=== PATIENT | female | born 1945 | race Caucasian/White ===

== ENCOUNTER → 2018-11-24 | Outpatient (CLI) | payer BC, MEDICARE ==
--- NOTE | 2018-11-24 22:37 | ECHOS ---
STRESS ECHOCARDIOGRAM DATE OF STUDY: 11/24/2018 INDICATIONS: Ventricular premature depolar. MEDICATIONS: BASELINE HEART RATE: 84 BASELINE BLOOD PRESSURE: 118/60 MAXIMUM HEART RATE: 137 MAXIMUM BLOOD PRESSURE: 150/81 85% MPHR: 127 100% MPHR: 149 METS: 7.0 MAXIMUM STAGE REACHED: 2 TOTAL EXERCISE TIME: 5:10 CLINICAL INFORMATION: Patient was exercised for a total period of 5 minutes. Peak heart rate of 137 was achieved. Maximum blood pressure of 150/81 mmHg was noted. Resting EKG shows normal sinus rhythm with normal MS interval and QRS duration and normal ST-T waves. No ST- segment depression suggestive of ischemia is noted. Occasional PVCs are noted. The baseline echocardiographic images reveal normal left ventricular chamber size with normal left ventricular systolic function. In the immediate post-exercise period, normal increase in the wall thickness and contractility is noted. FINAL IMPRESSION: This stress echocardiographic study is negative for stress-induced ischemia. EKG portion of the stress test is not suggestive of ischemia. Occasional PVCs are noted. MMODL / IJN: [id number] /
== END | disposition home or self-care (01) ==
LOC: RADNMMAIN 09:48
PROVIDERS: ATTEND Internal Medicine
DX: I49.3 Ventricular premature depolarization (principal)
CPT/HCPCS: 93351; Q9950

== ENCOUNTER → 2019-06-21 | Outpatient (CLI) | payer BC, MEDICARE ==
[2019-06-21 08:53] LABS: Basophils # (A) 0.1 k/uL (0-0.2); Basophils % (A) 1 %; Eosinophils # (A) 0.5 k/uL (0-0.7); Eosinophils % (A) 6 %; HCT 39.2 % (34.0-46.0); HGB 12.6 gm/dL (11.4-16.0); Lymphocytes # (A) 1.9 k/uL (1.0-4.8); Lymphocytes % (A) 23 %; MCH 28.8 pg (25.0-35.0); MCHC 32.3 g/dL (31.0-37.0); MCV 89.3 fL (80.0-100.0); Mean Platelet Volume 6.3; Monocytes # (A) 0.4 k/uL (0-1.0); Monocytes % (A) 6 %; Neutrophils # (A) 4.9 k/uL (1.3-7.7); Neutrophils % (A) 61 %; Platelet Count 318 k/uL (150-450); RBC 4.39 m/uL (3.80-5.40); RDW 14.3 % (11.5-15.5); WBC 8.1 k/uL (3.8-10.6)
[2019-06-21 09:03] LABS: African American GFR (CKD) >90 (>60 ml/min/1.73 sqM); Anion Gap 9 mmol/L; Blood Urea Nitrogen 19 mg/dL (7-17); Carbon Dioxide 29 mmol/L (22-30); Chloride 101 mmol/L (98-107); Glucose 123 mg/dL (74-99); Potassium 4.5 mmol/L (3.5-5.1); Sodium 139 mmol/L (137-145)
== END | disposition home or self-care (01) ==
LOC: LABWHC1 08:00
PROVIDERS: ATTEND Obstetrics & Gynecology
DX: Z01.812 Encounter for preprocedural laboratory examination (principal); E11.9 Type 2 diabetes mellitus without complications; N81.6 Rectocele; I10 Essential (primary) hypertension
CPT/HCPCS: 36415; 80051; 82565; 82947; 84520; 85025; 87086

== ENCOUNTER 2019-06-29 07:02 | Day surgery (SDC) | payer BC, MEDICARE ==
[2019-06-24 13:25] VITALS: BMI 29.7
[2019-06-29] MEDS ORDERED: ONDANSETRON 4 MG/2 ML VIAL IVP ONE (07:11)
[2019-06-29] MEDS ORDERED: HYDROmorphone 0.5 MG/0.5 ML SYRINGE IVP PRN (07:11)
[2019-06-29] MEDS ORDERED: MIDAZOLAM 2 MG/2 ML VIAL IV PRN (07:11)
[2019-06-29] MEDS ORDERED: DEXAMETHASONE SOD PHOSPHATE 10 MG/ML 1 ML VIAL IV ONE (07:11)
[2019-06-29] MEDS ORDERED: LIDOCAINE 1% 20 ML VIAL (10MG/ML) FOR IV START INTRADERMA ONE (07:50)
[2019-06-29 07:54] LABS: Glucose,Whole Blood 135 mg/dL (75-99)
[2019-06-29] MEDS: LACTATED RINGERS 1,000 ML IV SCH (08:00)
[2019-06-29] MEDS ORDERED: MIDAZOLAM 2 MG/2 ML VIAL ONE (09:06)
[2019-06-29] MEDS ORDERED: LIDOCAINE 1% INJ 10MG/ML (20 ML MDV) ONE (09:06)
[2019-06-29] MEDS ORDERED: ALBUTEROL INHALER 60 PUFF/8 GM INHALER INHALATION ONE (09:06)
[2019-06-29] MEDS ORDERED: PHENYLEPHRINE-0.9% NACL SYG 1 MG/10 ML SYRINGE ONE (09:06)
[2019-06-29] MEDS ORDERED: GLYCOPYRROLATE 0.2 MG/ML 2 ML VIAL ONE (09:06)
[2019-06-29] MEDS ORDERED: fentaNYL (PF) 50 MCG/ML 2 ML AMP ONE (09:06)
[2019-06-29] MEDS ORDERED: PROPOFOL 10 MG/ML 20 ML VIAL IV ONE (09:06)
[2019-06-29] MEDS ORDERED: NEOSTIGMINE 1 MG/ML 10 ML VIAL ONE (09:06)
[2019-06-29] MEDS ORDERED: ROCURONIUM BROMIDE 10 MG/ML 10 ML VIAL IV ONE (09:06)
[2019-06-29] MEDS ORDERED: KETOROLAC 30 MG/ML 1 ML VIAL ONE (09:06)
[2019-06-29] MEDS ORDERED: VASOPRESSIN 20 UNIT/ML 1 ML VIAL SQ ONE (09:31)
[2019-06-29] MEDS ORDERED: BACITRACIN 500 UNIT/GM OINT 28.4 GM TUBE TOPICAL ONE (09:32)
[2019-06-29] MEDS ORDERED: diphenhydrAMINE 50 MG/ML 1 ML VIAL IVP PRN (10:00)
[2019-06-29] MEDS ORDERED: IBUPROFEN 600 MG TAB PO PRN (10:00)
[2019-06-29] MEDS ORDERED: ONDANSETRON 4 MG/2 ML VIAL IVP PRN (10:00)
[2019-06-29] MEDS ORDERED: SIMETHICONE 80 MG CHEWABLE PO PRN (10:00)
[2019-06-29] MEDS ORDERED: METOCLOPRAMIDE 5 MG/ML 2 ML VIAL IVP PRN (10:00)
--- NOTE | 2019-06-29 10:00 | P.OP ---
Date of Procedure: 06/29/19 Preoperative Diagnosis: Symptomatic grade 3 rectocele Postoperative Diagnosis: Same, no obvious cystocele Procedure(s) Performed: Posterior repair Anesthesia: BAHMAN Surgeon: Nani Zepeda Inspector Heating And Refrigeration #1: Moni Steele Estimated Blood Loss (ml): 10 IV fluids (ml): 700 Urine output (ml): 180 Pathology: none sent Condition: stable Disposition: PACU Description of Procedure: Patient is brought to the operating suite. A general anesthetic is administered. The appropriate timeout is performed to assure proper patient and procedural identification. Antibiotics are given. The perineal body and vagina are prepped and draped in usual sterile fashion. The grade 3-4 rectocele is inspected, no obvious cystocele is noted. Bladder is drained for approximately 180 mL of clear yellow urine. A triangular portion of tissue is removed from the perineal body. The posterior vaginal mucosa is injected in the midline with dilute Pitressin solution. Metzenbaum scissors are used to undermine the mucosa and incise it to the top of the defect. The mucosa is held in a fanlike fashion with Allis clamps. Finger is used to roll the underlying fascial plane from the overlying mucosa. 2-0 Vicryl sutures used in an interrupted fashion to bring the fascial edges together thereby completely reducing the rectocele. Redundant mucosa is trimmed with Metzenbaum scissors. 2-0 Vicryl sutures then used in a running locking manner to close the posterior mucosa with an episiotomy-like closure to complete. Vagina is clean and dry. It is packed with half inch iodophor gauze with basic tracing. Rodriguez catheter is placed in the urine is clear. All sponge needle and instrument counts are correct at the end of this procedure. Patient is brought back to recovery room in very good condition with stable vital signs including a pulse of 62, blood pressure 92/52. Blood sugar will be checked in the recovery room and insulin administered if needed.
[2019-06-29 10:21] LABS: Glucose,Whole Blood 135 mg/dL (75-99)
[2019-06-29] MEDS ORDERED: METOCLOPRAMIDE 5 MG/ML 2 ML VIAL IVP ONE (10:58)
[2019-06-29] MEDS: KETOROLAC 30 MG/ML 1 ML VIAL IVP PRN ×2 (15:30→20:58)
[2019-06-29] MEDS: metFORMIN 500 MG TAB PO SCH (17:06)
[2019-06-29] MEDS ORDERED: VICTOZA 1.2 MG SQ SCH (18:00)
[2019-06-29] MEDS: SENNOSIDES-DOCUSATE SODIUM 1 EACH TAB PO SCH (20:58)
[2019-06-29] MEDS ORDERED: MAGNESIUM OXIDE 400 MG TAB PO SCH (21:00)
[2019-06-29 21:06] LABS: Glucose,Whole Blood 116 mg/dL (75-99)
[2019-06-30 07:42] LABS: Glucose,Whole Blood 109 mg/dL (75-99)
--- NOTE | 2019-06-30 07:48 | P.DS ---
Providers Date of admission: 06/29/19 Expected date of discharge: 06/30/19 Attending physician: Nani Zepeda [facility] Course: This is a 74-year-old white female who presented with an increasingly symptomat ic grade 3-4 rectocele. After consultation she elected to have surgical repair. Preoperative clearance was given per the medical team. Please see dictated history and physical for details. Patient was admitted yesterday and under my care underwent a rectocele repair. Vaginal packing was placed along with Rodriguez catheter. She did very well intraoperatively, please see dictated operative note for details. Blood sugars preoperatively and postoperatively were checked and all less than 200. This morning the patient is doing extremely well. Vaginal packing and Rodriguez catheter has been removed. She is passing flatus, voiding, ambulating, passing urine. Pain is very well controlled. There is no vaginal bleeding. Vital signs have remained stable and the patient has been afebrile. She is judged to be this morning in excellent condition for discharge home. She will follow-up with me in the office in 2 weeks. I have reminded her no intercourse, tampons or douching. She will use [id number] products as needed for pain, Advil or Aleve, and continue her regularly prescribed medications per medical team. No driving, no heavy lifting, no vacuuming. She will follow-up with me in the office in 2 weeks as instructed. Patient Condition at Discharge: Good Plan - Discharge Summary New Discharge Prescriptions: No Action Propylene Glycol [Systane Complete] 1 drop BOTH EYES BID Olopatadine HCl [Pataday] 1 drop BOTH EYES DAILY PRN PRN Reason: ALLERGY SX Polyethylene Glycol 3350 [Miralax] 17 gm PO DAILY PRN PRN Reason: Constipation Docusate [Colace] 100 mg PO HS Cyanocobalamin (Vitamin B-12) [Vitamin B-12] 1,000 mcg PO DAILY Magnesium Oxide [Mag-Ox] 250 mg PO HS Cetirizine HCl [Zyrtec] 10 mg PO DAILY Vit C/E/Zn/Coppr/Lutein/Zeaxan [Preservision Areds 2 Softgel] 1 each PO BID metFORMIN HCL [Glucophage] 500 mg PO BID Liraglutide [Victoza 2-Derrell] 1.2 mg SQ DAILY Lansoprazole [Prevacid] 30 mg PO DAILY Ezetimibe [Zetia] 10 mg PO HS Losartan-Hctz 50-12.5 mg [Hyzaar 50-12.5] 1 tab PO DAILY Atenolol [Tenormin] 50 mg PO DAILY Acetaminophen [Tylenol 8 Hour] 650 mg PO DIRECTED PRN PRN Reason: Pain Aspirin [Adult Low Dose Aspirin EC] 81 mg PO PC-SUPPER Melatonin 20 mg PO HS Azithromycin [Zithromax Z-pack] 0 mg PO DIRECTED Discharge Medication List Acetaminophen [Tylenol 8 Hour] 650 mg PO DIRECTED PRN 06/24/19 [History] Aspirin [Adult Low Dose Aspirin EC] 81 mg PO PC-SUPPER 06/24/19 [History] Atenolol [Tenormin] 50 mg PO DAILY 06/24/19 [History] Cetirizine HCl [Zyrtec] 10 mg PO DAILY 06/24/19 [History] Cyanocobalamin (Vitamin B-12) [Vitamin B-12] 1,000 mcg PO DAILY 06/24/19 [History] Docusate [Colace] 100 mg PO HS 06/24/19 [History] Ezetimibe [Zetia] 10 mg PO HS 06/24/19 [History] Lansoprazole [Prevacid] 30 mg PO DAILY 06/24/19 [History] Liraglutide [Victoza 2-Derrell] 1.2 mg SQ DAILY 06/24/19 [History] Losartan-Hctz 50-12.5 mg [Hyzaar 50-12.5] 1 tab PO DAILY 06/24/19 [History] Magnesium Oxide [Mag-Ox] 250 mg PO HS 06/24/19 [History] Melatonin 20 mg PO HS 06/24/19 [History] Olopatadine HCl [Pataday] 1 drop BOTH EYES DAILY PRN 06/24/19 [History] Polyethylene Glycol 3350 [Miralax] 17 gm PO DAILY PRN 06/24/19 [History] Propylene Glycol [Systane Complete] 1 drop BOTH EYES BID 06/24/19 [History] Vit C/E/Zn/Coppr/Lutein/Zeaxan [Preservision Areds 2 Softgel] 1 each PO BID 06/24/19 [History] metFORMIN HCL [Glucophage] 500 mg PO BID 06/24/19 [History] Azithromycin [Zithromax Z-pack] 0 mg PO DIRECTED 06/25/19 [History] Follow up Appointment(s)/Referral(s): Nani Zepeda MD [STAFF PHYSICIAN] - 2 Weeks
[2019-06-30] MEDS: LACTATED RINGERS 1,000 ML IV SCH (08:44)
[2019-06-30] MEDS: SENNOSIDES-DOCUSATE SODIUM 1 EACH TAB PO SCH (08:51)
[2019-06-30 10:10] VITALS: BP 132/60; PULSE 67; RESP 17; TEMP 98
[2019-06-30] MEDS: metFORMIN 500 MG TAB PO SCH (10:10)
== END 2019-06-30 13:00 | disposition home or self-care (01) ==
LOC: OR 07:02 → 4FBP 10:02 → OR 06-30 13:00
PROVIDERS: ATTEND Obstetrics & Gynecology
DX: N81.6 Rectocele (principal); I10 Essential (primary) hypertension; E78.5 Hyperlipidemia, unspecified; E11.9 Type 2 diabetes mellitus without complications; E78.00 Pure hypercholesterolemia, unspecified; K21.9 Gastro-esophageal reflux disease without esophagitis; J30.9 Allergic rhinitis, unspecified; Z78.0 Asymptomatic menopausal state; N39.41 Urge incontinence; R01.1 Cardiac murmur, unspecified; Z90.710 Acquired absence of both cervix and uterus; Z96.659 Presence of unspecified artificial knee joint; Z87.891 Personal history of nicotine dependence; Z82.49 Family history of ischemic heart disease and other diseases of the circulatory system; Z81.8 Family history of other mental and behavioral disorders; Z79.84 Long term (current) use of oral hypoglycemic drugs; Z79.82 Long term (current) use of aspirin; Z79.899 Other long term (current) drug therapy; Z88.0 Allergy status to penicillin; Z88.7 Allergy status to serum and vaccine; Z88.8 Allergy status to other drugs, medicaments and biological substances
CPT/HCPCS: 86900; 86901; 86850; 57250; J2250; J1200; J1100; J2710; J2765; J0690; J2405; J2001; J3010; J1885; J2370; J2704; J1170

== ENCOUNTER 2019-12-06 16:32 | Emergency (ER) | payer BC, MEDICARE ==
[2019-12-06] MEDS ORDERED: SODIUM CHLORIDE 0.9% 1,000 ML IV STA (17:10)
--- NOTE | 2019-12-06 17:20 | ED ---
Dizziness HPI - General Chief Complaint: Dizziness Stated Complaint: dizziness Time Seen by Provider: 12/06/19 16:41 Source: patient, RN notes reviewed Mode of arrival: ambulatory Limitations: no limitations - History of Present Illness Initial Comments: This is a 74-year-old female who was sent in by her doctor for complaints of dizziness. Also her blood pressure is been elevated over last week or so. When the latest was was 190/110 she's had dizziness with her prior history of vertigo in the past she has taken meclizine but not regularly she states does seem to help when she takes it no focal weaknesses she has some nonspecific headache at times. She states that about a week ago she had dizziness and spinning of the room. She does state meclizine helps her for 5 hours then starts again. No blurry vision no nausea no vomiting no focal weakness she states her left leg is always somewhat weak compared to the right this is since a knee surgery 2 years ago. No other complaints or modifying factors MD Complaint: dizziness - Related Data Home Medications Medication Instructions Recorded Confirmed Acetaminophen [Tylenol 8 Hour] 650 mg PO DIRECTED PRN 06/24/19 06/29/19 Aspirin [Adult Low Dose Aspirin EC] 81 mg PO PC-SUPPER 06/24/19 06/29/19 Atenolol [Tenormin] 50 mg PO DAILY 06/24/19 06/29/19 Cetirizine HCl [Zyrtec] 10 mg PO DAILY 06/24/19 06/29/19 Cyanocobalamin (Vitamin B-12) 1,000 mcg PO DAILY 06/24/19 06/29/19 [Vitamin B-12] Docusate [Colace] 100 mg PO HS 06/24/19 06/29/19 Ezetimibe [Zetia] 10 mg PO HS 06/24/19 06/29/19 Lansoprazole [Prevacid] 30 mg PO DAILY 06/24/19 06/29/19 Liraglutide [Victoza 2-Derrell] 1.2 mg SQ DAILY 06/24/19 06/29/19 Losartan-Hctz 50-12.5 mg [Hyzaar 1 tab PO DAILY 06/24/19 06/29/19 50-12.5] Magnesium Oxide [Mag-Ox] 250 mg PO HS 06/24/19 06/29/19 Melatonin 20 mg PO HS 06/24/19 06/29/19 Olopatadine HCl [Pataday] 1 drop BOTH EYES DAILY PRN 06/24/19 06/29/19 Polyethylene Glycol 3350 [Miralax] 17 gm PO DAILY PRN 06/24/19 06/29/19 Propylene Glycol [Systane Complete] 1 drop BOTH EYES BID 06/24/19 06/29/19 Vit C/E/Zn/Coppr/Lutein/Zeaxan 1 each PO BID 06/24/19 06/29/19 [Preservision Areds 2 Softgel] metFORMIN HCL [Glucophage] 500 mg PO BID 06/24/19 06/29/19 Azithromycin [Zithromax Z-pack] 0 mg PO DIRECTED 06/25/19 06/29/19 Previous Rx's Medication Instructions Recorded Meclizine [Antivert] 25 mg PO QID #20 tab 12/06/19 Allergies Allergy/AdvReac Type Severity Reaction Status Date / Time Vsbarnp-Nkv-Ypj Reductase Allergy Swelling Verified 12/06/19 16:39 Inhibitor amoxicillin [From Augmentin] AdvReac Nausea & Verified 12/06/19 16:39 Vomiting clavulanic acid AdvReac Nausea & Verified 12/06/19 16:39 [From Augmentin] Vomiting Review of Systems ROS Statement: Those systems with pertinent positive or pertinent negative responses have been documented in the HPI. ROS Other: All systems not noted in ROS Statement are negative. Past Medical History Past Medical History: Diabetes Mellitus, Hyperlipidemia, Hypertension Additional Past Medical History / Comment(s): macular degeneration History of Any Multi-Drug Resistant Organisms: None Reported Past Surgical History: Orthopedic Surgery Additional Past Surgical History / Comment(s): right knee, left knee. Past Psychological History: No Psychological Hx Reported Smoking Status: Never smoker Past Alcohol Use History: None Reported Past Drug Use History: None Reported General Exam - General Exam Comments Initial Comments: This is a well-developed well-nourished awake alert oriented 3 female Limitations: no limitations General appearance: alert, in no apparent distress Head exam: Present: atraumatic, normocephalic, normal inspection Eye exam: Present: normal appearance, PERRL, EOMI. Absent: scleral icterus, conjunctival injection, periorbital swelling ENT exam: Present: normal exam, mucous membranes moist Neck exam: Present: normal inspection, full ROM, other (No stridor JVD or bruits). Absent: tenderness, meningismus, lymphadenopathy Respiratory exam: Present: normal lung sounds bilaterally. Absent: respiratory distress, wheezes, rales, rhonchi, stridor Cardiovascular Exam: Present: regular rate, normal rhythm, normal heart sounds. Absent: systolic murmur, diastolic murmur, rubs, gallop, clicks GI/Abdominal exam: Present: soft, normal bowel sounds. Absent: distended, tenderness, guarding, rebound, rigid Extremities exam: Present: normal inspection, full ROM, normal capillary refill. Absent: tenderness, pedal edema, joint swelling, calf tenderness Back exam: Present: normal inspection Neurological exam: Present: alert, oriented X3, CN II-XII intact Psychiatric exam: Present: normal affect, normal mood Skin exam: Present: warm, dry, intact, normal color. Absent: rash Course Vital Signs 12/06/19 16:33 Temperature 97.9 F Pulse Rate 71 Respiratory 18 Rate Blood Pressure 164/66 O2 Sat by Pulse 99 Oximetry EKG Findings - EKG Results: EKG: interpreted by MONICO, sinus rhythm (Sinus rhythm rate of 62. We'll 132 QRS duration 88 QT since QTC 426/[address]-T wave changes sinus arrhythmia noted) Medical Decision Making - Medical Decision Making I did discuss findings with the patient. Patient's symptoms appear to be consistent with vertigo. She will be continuing with Antivert I did recommend she increase her oral fluids. She is to follow back up with Dr. Juarez. She is in agreement with this. She does admit that she's been under last stress recently. - Lab Data Result diagrams: 12/06/19 17:30 12/06/19 17:30 Lab Results 12/06/19 12/06/19 12/06/19 Range/Units 17:30 17:30 17:30 WBC 10.1 (3.8-10.6) k/uL RBC 4.29 (3.80-5.40) m/uL Hgb 12.5 (11.4-16.0) gm/dL Hct 38.4 (34.0-46.0) % MCV 89.5 (80.0-100.0) fL MCH 29.2 (25.0-35.0) pg MCHC 32.7 (31.0-37.0) g/dL RDW 14.8 (11.5-15.5) % Plt Count 294 (150-450) k/uL Neutrophils % 67 % Lymphocytes % 21 % Monocytes % 6 % Eosinophils % 4 % Basophils % 1 % Neutrophils # 6.7 (1.3-7.7) k/uL Lymphocytes # 2.1 (1.0-4.8) k/uL Monocytes # 0.6 (0-1.0) k/uL Eosinophils # 0.4 (0-0.7) k/uL Basophils # 0.1 (0-0.2) k/uL PT (9.0-12.0) sec INR (<1.2) APTT (22.0-30.0) sec Sodium 135 L (137-145) mmol/L Potassium 3.9 (3.5-5.1) mmol/L Chloride 99 (98-107) mmol/L Carbon Dioxide 26 (22-30) mmol/L Anion Gap 10 mmol/L BUN 18 H (7-17) mg/dL Creatinine 0.59 (0.52-1.04) mg/dL Est GFR (CKD-EPI)AfAm >90 (>60 ml/min/1.73 sqM) Est GFR (CKD-EPI)NonAf >90 (>60 ml/min/1.73 sqM) Glucose 198 H (74-99) mg/dL Calcium 9.3 (8.4-10.2) mg/dL Total Bilirubin 0.5 (0.2-1.3) mg/dL AST 28 (14-36) U/L ALT 12 (4-34) U/L Alkaline Phosphatase 101 (38-126) U/L Troponin I <0.012 (0.000-0.034) ng/mL Total Protein 7.1 (6.3-8.2) g/dL Albumin 4.3 (3.5-5.0) g/dL Urine Color Urine Appearance (Clear) Urine pH (5.0-8.0) Ur Specific [place] (1.001-1.035) Urine Protein (Negative) Urine Glucose (UA) (Negative) Urine Ketones (Negative) Urine Blood (Negative) Urine Nitrite (Negative) Urine Bilirubin (Negative) Urine Urobilinogen (<2.0) mg/dL Ur Leukocyte Esterase (Negative) Urine RBC (0-5) /hpf Urine WBC (0-5) /hpf Ur Squamous Epith Cells (0-4) /hpf Urine Mucus (None) /hpf 12/06/19 12/06/19 Range/Units 17:30 17:30 WBC (3.8-10.6) k/uL RBC (3.80-5.40) m/uL Hgb (11.4-16.0) gm/dL Hct (34.0-46.0) % MCV (80.0-100.0) fL MCH (25.0-35.0) pg MCHC (31.0-37.0) g/dL RDW (11.5-15.5) % Plt Count (150-450) k/uL Neutrophils % % Lymphocytes % % Monocytes % % Eosinophils % % Basophils % % Neutrophils # (1.3-7.7) k/uL Lymphocytes # (1.0-4.8) k/uL Monocytes # (0-1.0) k/uL Eosinophils # (0-0.7) k/uL Basophils # (0-0.2) k/uL PT 9.7 (9.0-12.0) sec INR 0.9 (<1.2) APTT 22.0 (22.0-30.0) sec Sodium (137-145) mmol/L Potassium (3.5-5.1) mmol/L Chloride (98-107) mmol/L Carbon Dioxide (22-30) mmol/L Anion Gap mmol/L BUN (7-17) mg/dL Creatinine (0.52-1.04) mg/dL Est GFR (CKD-EPI)AfAm (>60 ml/min/1.73 sqM) Est GFR (CKD-EPI)NonAf (>60 ml/min/1.73 sqM) Glucose (74-99) mg/dL Calcium (8.4-10.2) mg/dL Total Bilirubin (0.2-1.3) mg/dL AST (14-36) U/L ALT (4-34) U/L Alkaline Phosphatase (38-126) U/L Troponin I (0.000-0.034) ng/mL Total Protein (6.3-8.2) g/dL Albumin (3.5-5.0) g/dL Urine Color Yellow Urine Appearance Clear (Clear) Urine pH 6.0 (5.0-8.0) Ur Specific [place] 1.019 (1.001-1.035) Urine Protein Negative (Negative) Urine Glucose (UA) Negative (Negative) Urine Ketones Negative (Negative) Urine Blood Negative (Negative) Urine Nitrite Negative (Negative) Urine Bilirubin Negative (Negative) Urine Urobilinogen <2.0 (<2.0) mg/dL Ur Leukocyte Esterase Trace H (Negative) Urine RBC 2 (0-5) /hpf Urine WBC 1 (0-5) /hpf Ur Squamous Epith Cells <1 (0-4) /hpf Urine Mucus Rare H (None) /hpf - Radiology Data Radiology results: report reviewed (I did review the imaging and report no acute processes seen.), image reviewed Disposition Clinical Impression: Benign paroxysmal positional vertigo, Dehydration Disposition: HOME SELF-CARE Condition: Good Instructions (If sedation given, give patient instructions): Dizziness (ED), Benign Paroxysmal Positional Vertigo (ED), Dehydration (ED) Additional Instructions: Medication prescriptions sent to your preferred pharmacy Prescriptions: Meclizine [Antivert] 25 mg PO QID #20 tab Is patient prescribed a controlled substance at d/c from ED?: No Referrals: Kole Juarez MD [Primary Care Provider] - 1-2 days
[2019-12-06 18:04] LABS: Basophils # (A) 0.1 k/uL (0-0.2); Basophils % (A) 1 %; Eosinophils # (A) 0.4 k/uL (0-0.7); Eosinophils % (A) 4 %; HCT 38.4 % (34.0-46.0); HGB 12.5 gm/dL (11.4-16.0); Lymphocytes # (A) 2.1 k/uL (1.0-4.8); Lymphocytes % (A) 21 %; MCH 29.2 pg (25.0-35.0); MCHC 32.7 g/dL (31.0-37.0); MCV 89.5 fL (80.0-100.0); Mean Platelet Volume 7.7; Monocytes # (A) 0.6 k/uL (0-1.0); Monocytes % (A) 6 %; Neutrophils # (A) 6.7 k/uL (1.3-7.7); Neutrophils % (A) 67 %; Platelet Count 294 k/uL (150-450); RBC 4.29 m/uL (3.80-5.40); RDW 14.8 % (11.5-15.5); WBC 10.1 k/uL (3.8-10.6)
[2019-12-06 18:06] LABS: ALT 12 U/L (4-34); AST 28 U/L (14-36); African American GFR (CKD) >90 (>60 ml/min/1.73 sqM); Albumin 4.3 g/dL (3.5-5.0); Alkaline Phosphatase 101 U/L (38-126); Anion Gap 10 mmol/L; Blood Urea Nitrogen 18 mg/dL (7-17); Calcium 9.3 mg/dL (8.4-10.2); Carbon Dioxide 26 mmol/L (22-30); Chloride 99 mmol/L (98-107); Glucose 198 mg/dL (74-99); Non-African American GFR(CKD) >90 (>60 ml/min/1.73 sqM); Potassium 3.9 mmol/L (3.5-5.1); Sodium 135 mmol/L (137-145); Total Bilirubin 0.5 mg/dL (0.2-1.3); Total Protein 7.1 g/dL (6.3-8.2)
[2019-12-06 18:13] LABS: Appearance,Urine Clear (Clear); Bilirubin,Urine Negative (Negative); Blood,Urine Negative (Negative); Color,Urine Yellow; Glucose,Urine (UA) Negative (Negative); Ketones,Urine Negative (Negative); Leukocyte Esterase,Urine Trace (Negative); Mucus,Urine Rare /hpf; Nitrite,Urine Negative (Negative); Protein,Urine Negative (Negative); RBC,Urine 2 /hpf (0-5); Specific Gravity,Urine 1.019 (1.001-1.035); Squamous Epithelial Cell,Urine <1 /hpf (0-4); Urobilinogen,Urine <2.0 mg/dL (<2.0); WBC,Urine 1 /hpf (0-5)
[2019-12-06 18:14] LABS: INR 0.9 (<1.2); Prothrombin Time 9.7 sec (9.0-12.0)
--- NOTE | 2019-12-06 18:15 | CT ---
EXAMINATION TYPE: CT brain wo con for TPA DATE OF EXAM: 12/06/2019 COMPARISON: None HISTORY: 74-year-old female recent change in BP meds. Posterior headache and dizziness. TECHNIQUE: Examination was done in axial plane without intravenous contrast. Coronal and sagittal r econstructions performed. CT DLP: 1249 mGycm Automated exposure control for dose reduction was used. FINDINGS: There is no evidence of acute intracranial hemorrhage, acute ischemic changes, mass, mass-effect, or extra-axial fluid collection. There is no effacement of cerebral sulci or basal subarachnoid cister ns. There is no hydrocephalus. There is no midline shift. Lopez-white matter distinction is preserv ed. Abdomen scattered calcifications within the bilateral carotid siphons. Mild age-related cortical atro phy. Scattered mild to moderate mucosal thickening ethmoid air cells and left sphenoid sinus. Mastoid air cells are well pneumatized. Orbits and globes appear intact. IMPRESSION: No acute intracranial abnormality seen. [id number] chronic ethmoid sinus disease.
--- NOTE | 2019-12-06 18:41 | CT ---
EXAMINATION TYPE: CT angio head neck DATE OF EXAM: 12/06/2019 COMPARISON: CT brain same day HISTORY: 74-year-old female recent change in BP meds. Posterior headache and dizziness. TECHNIQUE: Contiguous axial scanning of the head and neck performed with IV Contrast, patient injecte d with 65 mL of Isovue 370. Coronal/sagittal MIP reconstructions performed. 3-D reconstructions gener ated on a dedicated independent workstation. CT DLP: 430.3 mGycm Automated exposure control for dose reduction was used. FINDINGS: NECK: Moderate plaque and calcifications at the aortic arch with conventional arch vessel branching anatomy . Vertebral arteries are codominant and appear patent throughout their course. Retropharyngeal course of the proximal to mid bilateral common carotid arteries. Both common carotid arteries are patent. The right ICA is patent. Mild atherosclerotic calcifications at the left carotid bulb anteriorly to mild, less than 30% proxim al ICA stenosis. Remainder of the left ICA is PATENT. HEAD: The V4 segment left vertebral artery becomes slightly smaller caliber than the right, likely on a con genital basis. Otherwise, both vertebral and basilar arteries are patent Mild atherosclerotic calcifications throughout the carotid siphons resulting in variable mild segment al narrowing. Anterior circulation otherwise patent. No aneurysmal change is seen. IMPRESSION: 1. NECK: MILD, LESS THAN 30% ATHEROSCLEROTIC NARROWING PROXIMAL LEFT ICA. VERTEBRAL AND CAROTID ARTER IES OF THE NECK ARE OTHERWISE PATENT. 2. HEAD: MILD ATHEROSCLEROTIC NARROWING THROUGHOUT THE BILATERAL CAROTID SIPHONS. NO LARGE VESSEL INT RACRANIAL ARTERIAL OCCLUSION OR ANEURYSMAL CHANGE IS SEEN.
[2019-12-06 21:10] VITALS: BP 142/89; PULSE 88; RESP 16; TEMP 97.7
== END 2019-12-06 21:16 | disposition home or self-care (01) ==
LOC: EC 16:32
DX: H81.10 Benign paroxysmal vertigo, unspecified ear (principal); E86.0 Dehydration; E11.9 Type 2 diabetes mellitus without complications; E78.5 Hyperlipidemia, unspecified; I10 Essential (primary) hypertension; H35.30 Unspecified macular degeneration; Z79.82 Long term (current) use of aspirin; Z79.84 Long term (current) use of oral hypoglycemic drugs; Z79.899 Other long term (current) drug therapy; Z88.0 Allergy status to penicillin; Z88.8 Allergy status to other drugs, medicaments and biological substances
CPT/HCPCS: 36415; 93005; 80053; 84484; 85025; 85610; 85730; 81001; 70496; 70450; 70498; 96360; 96361 ×2; 99284; Q9967

== ENCOUNTER → 2020-10-18 | Outpatient (CLI) | payer MEDICARE ==
--- NOTE | 2020-10-18 12:34 | US ---
EXAMINATION TYPE: US gallbladder DATE OF EXAM: 10/18/2020 COMPARISON: NONE CLINICAL HISTORY: 75-year-old female R10.13 Dyspepsia. TECHNIQUE: Multiple sonographic images of the right upper quadrant were obtained. FINDINGS: EXAM MEASUREMENTS: Liver Length: 12.4 cm Gallbladder Wall: 0.2 cm CBD: 0.3 cm Right Kidney: 9.5 x 3.7 x 3.8 cm Pancreas: wnl Liver: wnl Gallbladder: No stones seen Evidence for sonographic Glover's sign: No CBD: wnl Right Kidney: linear echogenic focus measuring 1.2 x 0.8 cm with shadowing. No hydronephrosis. IMPRESSION: 1. Possible 1.2 x 0.8 cm nonobstructive left renal calculus. No hydronephrosis. 2. Otherwise, unremarkable right upper quadrant ultrasound.
== END ==
LOC: RADUSWWP 09:33
PROVIDERS: ATTEND Internal Medicine
DX: R10.13 Epigastric pain (principal)
CPT/HCPCS: 76705

== ENCOUNTER → 2021-02-01 | Outpatient (CLI) | payer MEDICARE ==
--- NOTE | 2021-02-01 15:43 | XR ---
EXAMINATION TYPE: XR KUB DATE OF EXAM: 02/01/2021 2:33 PM CLINICAL HISTORY: Microscopic hematuria TECHNIQUE: Single supine KUB image of the abdomen is obtained. COMPARISON: None. FINDINGS: Scattered gas is seen in non-distended small bowel loops. Gas and fecal material is seen in non-distended colon. There is no visceromegaly, pneumoperitoneum, or abnormal calcification apprecia radha. Postoperative changes are noted in the lumbar spine. IMPRESSION: Overall nonobstructive bowel gas pattern.
== END | disposition home or self-care (01) ==
LOC: RADXRMAIN 14:17
PROVIDERS: ATTEND Internal Medicine
DX: R31.29 Other microscopic hematuria (principal)
CPT/HCPCS: 74018

== ENCOUNTER 2021-03-13 11:51 | Emergency (ER) | payer MEDICARE ==
[2021-03-13] MEDS ORDERED: SODIUM CHLORIDE 0.9% 1,000 ML IV STA (12:32)
[2021-03-13] MEDS ORDERED: ONDANSETRON 4 MG/2 ML VIAL IVP STA (12:32)
[2021-03-13] MEDS ORDERED: MORPHINE SULFATE 2 MG/ML SYRINGE IVP STA (12:35)
--- NOTE | 2021-03-13 12:46 | ED ---
General Adult HPI - General Chief complaint: Urogenital Stated complaint: fever, blood in urine Time Seen by Provider: 03/13/21 12:07 Source: patient, RN notes reviewed, old records reviewed Mode of arrival: ambulatory Limitations: no limitations - History of Present Illness Initial comments: Patient is a 76-year-old female with past medical history remarkable for recent UTI's and nephrolithiasis, hypertension, hyperlipidemia, diabetes who presents emergency Department complaining of acute onset of dysuria and hematuria. Patient states that it began this morning at approximately 4 AM. She was having right-sided CVA tenderness with some radiation around her right flank. She discounts it is an achy, sharp sensation that does not radiate to the groin. It remains in her right CVA/flank. She noticed The day today but she has been having blood in her urine and has been expressing pyuria with some mild urinary incontinence. She also noticed paris hematuria. She states that the last time this happened, it is found that she had a UTI and was treated with antibiotics. She does state that she has a history of kidney stones and has been some months since her last kidney stone, however she is complaining of worsening abdominal pain as well as worse hematuria on this episode. She denies any fevers, chills. Denies any chest pain, shortness of breath. She denies any other acute concerns at this time including vaginal discharge. She denies any current nausea or vomiting. Patient presents over concern for possible UTI versus kidney stone. - Related Data Home Medications Medication Instructions Recorded Confirmed Aspirin [Adult Low Dose Aspirin EC] 81 mg PO DAILY 06/24/19 03/13/21 Cyanocobalamin (Vitamin B-12) 1,000 mcg PO DAILY 06/24/19 03/13/21 [Vitamin B-12] Ezetimibe [Zetia] 10 mg PO DAILY 06/24/19 03/13/21 Lansoprazole [Prevacid] 30 mg PO BID 06/24/19 03/13/21 Olopatadine HCl [Pataday] 1 drop BOTH EYES DAILY 06/24/19 03/13/21 atenoloL [Tenormin] 50 mg PO DAILY 06/24/19 03/13/21 metFORMIN HCL [Glucophage] 500 mg PO BID 06/24/19 03/13/21 Calcium/Magnesium/Zinc 1 tab PO BID 03/13/21 03/13/21 [Wremzsa-Dlywkinvy-Yufs Tablet] Clotrimazole/Betamethasone Dip 1 applic TOPICAL BID PRN 03/13/21 03/13/21 [Lotrisone Cream] Fluticasone Nasal Welcome [Flonase 2 spr EA NOSTRIL DAILY PRN 03/13/21 03/13/21 Nasal Welcome] Hydrochlorothiazide 12.5 mg PO DAILY 03/13/21 03/13/21 [hydroCHLOROthiazide] Losartan [Cozaar] 50 mg PO BID 03/13/21 03/13/21 Natural Tears 1 drop BOTH EYES DAILY PRN 03/13/21 03/13/21 Pioglitazone [Actos] 30 mg PO DAILY 03/13/21 03/13/21 Previous Rx's Medication Instructions Recorded Fluconazole 200 mg PO DAILY 1 Days #1 tab 03/13/21 Sulfamethox-Tmp 800-160Mg [Bactrim 1 tab PO BID 14 Days #28 tab 03/13/21 DS 800-160 mg] Allergies Allergy/AdvReac Type Severity Reaction Status Date / Time tetracycline Allergy Rash/Hives Verified 03/13/21 14:45 amoxicillin [From Augmentin] AdvReac Nausea & Verified 03/13/21 14:45 Vomiting clavulanic acid AdvReac Nausea & Verified 03/13/21 14:45 [From Augmentin] Vomiting Knnhrcv-Gly-Hvk Reductase AdvReac joint Verified 03/13/21 14:45 Inhibitor pain/muscle pain Review of Systems ROS Statement: Those systems with pertinent positive or pertinent negative responses have been documented in the HPI. Review of Systems: CONST: Denies fever EYES: Denies blurry vision ENT: Denies nasal congestion C/V: Denies Chest pain RESP: Denies shortness of breath GI: Endorses abdominal pain : Endorses dysuria, hematuria SKIN: Denies rash. MSK: Denies joint pain. NEURO: Denies headache ROS Other: All systems not noted in ROS Statement are negative. Past Medical History Past Medical History: Diabetes Mellitus, Hyperlipidemia, Hypertension Additional Past Medical History / Comment(s): macular degeneration History of Any Multi-Drug Resistant Organisms: None Reported Past Surgical History: Orthopedic Surgery Additional Past Surgical History / Comment(s): right knee, left knee. Past Psychological History: No Psychological Hx Reported Smoking Status: Never smoker Past Alcohol Use History: None Reported Past Drug Use History: None Reported General Exam - General Exam Comments Initial Comments: General: Appears in mild distress secondary to discomfort over the right flank. HEAD: Normal with no signs of head trauma. EYES: PERRLA, EOMI, conjunctiva normal, no discharge. ENT: Hearing grossly intact, normal oropharynx. RESPIRATORY: Clear breath sounds bilaterally. No wheezes, rales, or rhonchi. C/V: Regular rate and rhythm. S1 and S2 auscultated, no edema, peripheral pulses 2+ and intact throughout ABD: Patient does have some right flank tenderness with radiation to the right CVA. Patient is tender to percussion of the right CVA. Left abdomen and CVAs are unremarkable. She has no other abdominal discomfort. There is no guarding. There are no peritoneal signs. Abdomen is otherwise nondistended. Patient is very tender over the right flank and CVA. EXT: Normal range of motion, no obvious deformity SKIN: No rashes or lesions observed on exposed skin. NEURO: Alert and oriented 4. Limitations: no limitations Course Vital Signs 03/13/21 03/13/21 03/13/21 11:54 12:57 13:00 Temperature 98.0 F Pulse Rate 91 Respiratory 16 18 18 Rate Blood Pressure 161/77 O2 Sat by Pulse 96 Oximetry 03/13/21 03/13/21 03/13/21 14:00 15:00 15:14 Temperature 98 F Pulse Rate 72 Respiratory 18 18 18 Rate Blood Pressure 110/70 O2 Sat by Pulse 98 Oximetry Medical Decision Making - Medical Decision Making Based on the patient's presentation and physical exam, I'm concerned for possible kidney infection versus renal stone. However I cannot rule out other intra-abdominal pathology at this time as she is externally tender over the right flank. Therefore we'll obtain an abdominal imaging, CT imaging as well as basic laboratory studies. This includes urinalysis and coags in addition to electrolytes and CBC. Patient recently treated with 1 L fluid bolus, as well as IV morphine. She was in agreement with this plan. The patient's laboratory studies are remarkable for a leukocytosis of 18. Patient has a slightly elevated the lateral 25. She has a mildly decreased sodi um of 134 and chloride of 97. Patient's urinalysis is remarkable for a large amount of blood present as well as a large amount of leukocyte esterase, WBCs, RBCs. There is rare bacteria present. CT abdomen and pelvis revealed no signs of nephrolithiasis but signs concerning for acute pyelonephritis of the right kidney. There are also bilateral renal cyst as well as diverticulosis without acute diverticulitis. I did look at patient's prior urine cultures which grew Proteus that was susceptible to most antibiotics. On Reevaluation, patient states her pain is better controlled. I discussed with her that she has an acute kidney infection. The patient requires antibiotics. I did discuss with the patient admission for antibiotic versus discharge home, and she states she would prefer to leave. She does not want to stay for IV antibiotics. I believe this is reasonable as she is minimally symptomatic, with well-controlled pain and no nausea or vomiting. I did advise her to return to the emergency department if her symptoms worsen. She was in agreement with this plan. Patient will therefore receive a dose of IV Rocephin, 1 g prior to discharge. She'll be discharged home with 14 days of Bactrim. Patient was in agreement this plan. I will provide the patient with a prescription for Bactrim DS twice a day for 14 days. Patient also requested a dose of fluconazole, she does have a history of yeast infections after receiving antibiotics. I'll provide her a prescription with a one-time dose to take if needed.I instructed the patient to follow up with their PCP in the next 3 days . I explained that the patient should return to the emergency department if they experience any worsening symptoms. Strict return precautions were discussed with the patient. The patient expressed understanding of these instructions. I answered all questions that the patient had. The patient was discharged home in fair condition with their prescriptions and follow up information. - Lab Data Result diagrams: 03/13/21 12:37 03/13/21 12:37 Lab Results 03/13/21 03/13/21 03/13/21 Range/Units 12:37 12:37 12:37 WBC 18.8 H (3.8-10.6) k/uL RBC 3.92 (3.80-5.40) m/uL Hgb 11.5 (11.4-16.0) gm/dL Hct 35.5 (34.0-46.0) % MCV 90.5 (80.0-100.0) fL MCH 29.4 (25.0-35.0) pg MCHC 32.5 (31.0-37.0) g/dL RDW 14.7 (11.5-15.5) % Plt Count 467 H (150-450) k/uL MPV 7.7 Neutrophils % 90 % Lymphocytes % 3 % Monocytes % 5 % Eosinophils % 1 % Basophils % 0 % Neutrophils # 17.0 H (1.3-7.7) k/uL Lymphocytes # 0.6 L (1.0-4.8) k/uL Monocytes # 0.8 (0-1.0) k/uL Eosinophils # 0.2 (0-0.7) k/uL Basophils # 0.1 (0-0.2) k/uL PT (9.0-12.0) sec INR (<1.2) APTT (22.0-30.0) sec Sodium 134 L (137-145) mmol/L Potassium 4.3 (3.5-5.1) mmol/L Chloride 97 L (98-107) mmol/L Carbon Dioxide 26 (22-30) mmol/L Anion Gap 11 mmol/L BUN 25 H (7-17) mg/dL Creatinine 0.81 (0.52-1.04) mg/dL Est GFR (CKD-EPI)AfAm 83 (>60 ml/min/1.73 sqM) Est GFR (CKD-EPI)NonAf 72 (>60 ml/min/1.73 sqM) Glucose 215 H (74-99) mg/dL Calcium 10.0 (8.4-10.2) mg/dL Total Bilirubin 1.0 (0.2-1.3) mg/dL AST 25 (14-36) U/L ALT 10 (4-34) U/L Alkaline Phosphatase 91 (38-126) U/L Total Protein 7.1 (6.3-8.2) g/dL Albumin 4.2 (3.5-5.0) g/dL Lipase 100 (23-300) U/L Urine Color Red Urine Appearance Turbid H (Clear) Urine pH 6.5 (5.0-8.0) Ur Specific [place] 1.020 (1.001-1.035) Urine Protein 2+ H (Negative) Urine Glucose (UA) Negative (Negative) Urine Ketones Negative (Negative) Urine Blood Large H (Negative) Urine Nitrite Negative (Negative) Urine Bilirubin Negative (Negative) Urine Urobilinogen <2.0 (<2.0) mg/dL Ur Leukocyte Esterase Large H (Negative) Urine RBC >182 H (0-5) /hpf Urine WBC >182 H (0-5) /hpf Ur Squamous Epith Cells 3 (0-4) /hpf Urine Bacteria Rare H (None) /hpf 03/13/21 Range/Units 12:41 WBC (3.8-10.6) k/uL RBC (3.80-5.40) m/uL Hgb (11.4-16.0) gm/dL Hct (34.0-46.0) % MCV (80.0-100.0) fL MCH (25.0-35.0) pg MCHC (31.0-37.0) g/dL RDW (11.5-15.5) % Plt Count (150-450) k/uL MPV Neutrophils % % Lymphocytes % % Monocytes % % Eosinophils % % Basophils % % Neutrophils # (1.3-7.7) k/uL Lymphocytes # (1.0-4.8) k/uL Monocytes # (0-1.0) k/uL Eosinophils # (0-0.7) k/uL Basophils # (0-0.2) k/uL PT 10.4 (9.0-12.0) sec INR 1.0 (<1.2) APTT 19.9 L (22.0-30.0) sec Sodium (137-145) mmol/L Potassium (3.5-5.1) mmol/L Chloride (98-107) mmol/L Carbon Dioxide (22-30) mmol/L Anion Gap mmol/L BUN (7-17) mg/dL Creatinine (0.52-1.04) mg/dL Est GFR (CKD-EPI)AfAm (>60 ml/min/1.73 sqM) Est GFR (CKD-EPI)NonAf (>60 ml/min/1.73 sqM) Glucose (74-99) mg/dL Calcium (8.4-10.2) mg/dL Total Bilirubin (0.2-1.3) mg/dL AST (14-36) U/L ALT (4-34) U/L Alkaline Phosphatase (38-126) U/L Total Protein (6.3-8.2) g/dL Albumin (3.5-5.0) g/dL Lipase (23-300) U/L Urine Color Urine Appearance (Clear) Urine pH (5.0-8.0) Ur Specific [place] (1.001-1.035) Urine Protein (Negative) Urine Glucose (UA) (Negative) Urine Ketones (Negative) Urine Blood (Negative) Urine Nitrite (Negative) Urine Bilirubin (Negative) Urine Urobilinogen (<2.0) mg/dL Ur Leukocyte Esterase (Negative) Urine RBC (0-5) /hpf Urine WBC (0-5) /hpf Ur Squamous Epith Cells (0-4) /hpf Urine Bacteria (None) /hpf Disposition Clinical Impression: Pyelonephritis, Hematuria Disposition: HOME SELF-CARE Condition: Fair Instructions (If sedation given, give patient instructions): Urinary Tract Infection in Women (ED) Prescriptions: Sulfamethox-Tmp 800-160Mg [Bactrim DS 800-160 mg] 1 tab PO BID 14 Days #28 tab Fluconazole 200 mg PO DAILY 1 Days #1 tab Is patient prescribed a controlled substance at d/c from ED?: No Referrals: Kole Juarez MD [Primary Care Provider] - 1-2 days
[2021-03-13 12:55] LABS: Basophils # (A) 0.1 k/uL (0-0.2); Basophils % (A) 0 %; Eosinophils # (A) 0.2 k/uL (0-0.7); Eosinophils % (A) 1 %; HCT 35.5 % (34.0-46.0); HGB 11.5 gm/dL (11.4-16.0); Lymphocytes # (A) 0.6 k/uL (1.0-4.8); Lymphocytes % (A) 3 %; MCH 29.4 pg (25.0-35.0); MCHC 32.5 g/dL (31.0-37.0); MCV 90.5 fL (80.0-100.0); Mean Platelet Volume 7.7; Monocytes # (A) 0.8 k/uL (0-1.0); Monocytes % (A) 5 %; Neutrophils % (A) 90 %; Platelet Count 467 k/uL (150-450); RBC 3.92 m/uL (3.80-5.40); RDW 14.7 % (11.5-15.5); WBC 18.8 k/uL (3.8-10.6)
[2021-03-13 13:18] LABS: Albumin 4.2 g/dL (3.5-5.0); Potassium 4.3 mmol/L (3.5-5.1); Total Protein 7.1 g/dL (6.3-8.2)
[2021-03-13 13:32] VITALS: RESP 18
[2021-03-13 13:32] LABS: Prothrombin Time 10.4 sec (9.0-12.0)
[2021-03-13 13:50] LABS: Partial Thromboplastin Time 19.9 sec (22.0-30.0)
--- NOTE | 2021-03-13 14:11 | CT ---
EXAMINATION TYPE: CT abdomen pelvis w con DATE OF EXAM: 03/13/2021 COMPARISON: None INDICATION: low back pain, gross hematuria DLP: 1084.8 mGycm, Automated exposure control for dose reduction was used. CONTRAST: 100 mL of Isovue 300. Study performed without Oral Contrast TECHNIQUE: Axial images were obtained from above the diaphragm to the pubic rami in the axial plane a t 5 mm thick sections. Reconstructed images are reviewed on the computer in the coronal plane. FINDINGS: Limited CT sections are obtained the lung bases. The lung bases are clear. CT ABDOMEN: Liver: Normal Spleen: Normal Pancreas: Normal Adrenal glands: The adrenal glands are normal. Gallbladder: Normal Kidneys: No masses are evident. There is prominence of the left renal collecting system. A nonobstruc ting renal calcification within the mid right kidney may be present. This measures 1.6 x 0.7 cm withi n the renal pelvis. Cysts are more apparent on the delayed images bilateral renal cortices. At the i nferior pole right kidney there is loss of the contrast within the cortex. This remains hypointense o n delayed images. Consider pyelonephritis. Ischemia is considered less likely. Aorta: Vascular calcification is within the aorta. Inferior vena cava: Normal. CT PELVIS: Loops of bowel within the abdomen and pelvis are normal. This study is without oral contrast Limi radha bowel evaluation. Diverticulosis within the sigmoid colon Appendix: Not visualized Urinary bladder: Decompressed with limited evaluation. Genitourinary structures: Uterus and ovaries are not identified. Osseous structures: Postsurgical changes are within the lumbar spine. This causes artifact in some li mitation which may also affect the inferior pole right kidney. IMPRESSIONS: 1. Suggestion of diminished contrast within the inferior right renal cortex compared to the remainin g kidney. Consider pyelonephritis within the differential. This is in an area which may have artifact contributing to the apparent abnormality. 2. Diverticulosis without acute diverticulitis. 3. Bilateral renal cysts
[2021-03-13 14:19] LABS: Appearance,Urine Turbid (Clear); Bacteria,Urine Rare /hpf; Bilirubin,Urine Negative (Negative); Blood,Urine Large (Negative); Color,Urine Red; Glucose,Urine (UA) Negative (Negative); Ketones,Urine Negative (Negative); Leukocyte Esterase,Urine Large (Negative); Nitrite,Urine Negative (Negative); PH, Urine 6.5 (5.0-8.0); Protein,Urine 2+ (Negative); RBC,Urine >182 /hpf (0-5); Squamous Epithelial Cell,Urine 3 /hpf (0-4); Urobilinogen,Urine <2.0 mg/dL (<2.0); WBC,Urine >182 /hpf (0-5)
[2021-03-13] MEDS ORDERED: cefTRIAXone IN SWFI 1,000 MG/10 ML SYRINGE IVP STA (14:52)
[2021-03-13 15:15] VITALS: BP 110/70; PULSE 72; TEMP 98
== END 2021-03-13 15:15 | disposition home or self-care (01) ==
LOC: EC 11:51
DX: N12 Tubulo-interstitial nephritis, not specified as acute or chronic (principal); N28.1 Cyst of kidney, acquired; K57.30 Diverticulosis of large intestine without perforation or abscess without bleeding; E11.9 Type 2 diabetes mellitus without complications; I10 Essential (primary) hypertension; E78.5 Hyperlipidemia, unspecified; Z79.84 Long term (current) use of oral hypoglycemic drugs; Z79.82 Long term (current) use of aspirin; Z79.899 Other long term (current) drug therapy; Z88.0 Allergy status to penicillin; Z88.1 Allergy status to other antibiotic agents; Z88.8 Allergy status to other drugs, medicaments and biological substances
CPT/HCPCS: 36415; 80053; 83690; 85025; 85610; 85730; 81001; 87086; 74177; 96374; 96375; 96361 ×2; 99284; J2405; J0696; Q9967

== ENCOUNTER → 2021-04-06 | Outpatient (CLI) | payer MEDICARE ==
[2021-04-06 11:06] LABS: Anisocytosis Slight; Basophils # (A) 0.1 k/uL (0-0.2); Basophils % (A) 1 %; Eosinophils # (A) 0.3 k/uL (0-0.7); Eosinophils % (A) 5 %; HCT 32.8 % (34.0-46.0); HGB 10.6 gm/dL (11.4-16.0); Lymphocytes # (A) 1.7 k/uL (1.0-4.8); Lymphocytes % (A) 27 %; MCH 29.8 pg (25.0-35.0); MCHC 32.3 g/dL (31.0-37.0); MCV 92.2 fL (80.0-100.0); Monocytes # (A) 0.4 k/uL (0-1.0); Monocytes % (A) 6 %; Neutrophils # (A) 3.7 k/uL (1.3-7.7); Neutrophils % (A) 58 %; Platelet Count 351 k/uL (150-450); RBC 3.56 m/uL (3.80-5.40); RDW 16.2 % (11.5-15.5); WBC 6.5 k/uL (3.8-10.6)
[2021-04-06 11:17] LABS: Calcium 9.9 mg/dL (8.4-10.2); Potassium 5.5 mmol/L (3.5-5.1); Total Bilirubin 0.3 mg/dL (0.2-1.3); Total Protein 6.7 g/dL (6.3-8.2)
[2021-04-06 12:22] LABS: Appearance,Urine Clear (Clear); Bilirubin,Urine Negative (Negative); Blood,Urine Negative (Negative); Color,Urine Yellow; Glucose,Urine (UA) Negative (Negative); Ketones,Urine Negative (Negative); Leukocyte Esterase,Urine Negative (Negative); Nitrite,Urine Negative (Negative); Protein,Urine Negative (Negative); Specific Gravity,Urine 1.013 (1.001-1.035); Urobilinogen,Urine <2.0 mg/dL (<2.0)
== END | disposition home or self-care (01) ==
LOC: LABPAT 09:20
PROVIDERS: ATTEND Urology
DX: Z01.812 Encounter for preprocedural laboratory examination (principal); N20.0 Calculus of kidney
CPT/HCPCS: 36415; 80053; 81003; 85025; 87086

== ENCOUNTER 2021-04-13 10:09 | Day surgery (SDC) | payer MEDICARE ==
[2021-04-09 15:53] VITALS: BMI 29.0
--- NOTE | 2021-04-12 19:03 | P.GSHP ---
History of Present Illness H&P Date: 04/12/21 76 yo female with recurrent proteus mirabalis uti and a 16 mm right renal pelvic stone who comes for a right pcnl. Because the stone is probably infected I felt that complete removal is necessary to rid her of the proteus infection. The risks and complications have been discussed including infection, bleeding sepsis injury to adjacent organs, damage to the kidney among others have been explained understood and accepted. - Constitutional Constitutional: Denies chills, Denies fever - EENT Eyes: denies blurred vision, denies pain Ears, nose, mouth and throat: Denies headache, Denies sore throat - Cardiovascular Cardiovascular: Denies chest pain, Denies shortness of breath - Respiratory Respiratory: Denies cough, Denies 7 - Gastrointestinal Gastrointestinal: Denies abdominal pain, Denies diarrhea, Denies nausea, Denies vomiting - Genitourinary (Female) Genitourinary: Denies dysuria, Denies hematuria - Genitourinary (Male) Genitourinary: Denies dysuria, Denies hematuria - Musculoskeletal Musculoskeletal: Denies myalgias - Integumentary Integumentary: Denies pruritus, Denies rash - Neurological Neurological: Denies numbness, Denies weakness - Psychiatric Psychiatric: Denies anxiety, Denies depression - Endocrine Endocrine: Denies fatigue, Denies weight change Past Medical History Past Medical History: Diabetes Mellitus, Eye Disorder, GERD/Reflux, Hy perlipidemia, Hypertension Additional Past Medical History / Comment(s): macular degeneration , hx migraines, hiatal hernia, kidney stone, on "antibiotic for kidney infection due to the stone" History of Any Multi-Drug Resistant Organisms: None Reported Past Surgical History: Breast Surgery, Joint Replacement, Tonsillectomy Additional Past Surgical History / Comment(s): fibroid removed from left breast, decompression of L4 and L 5, joy knee replacement, colonoscopy, joy cataracts removed, rectocele repair Past Anesthesia/Blood Transfusion Reactions: Previous Problems w/ Anesthesia, Motion Sickness Additional Past Anesthesia/Blood Transfusion Reaction / Comment(s): " I wake up alot with anesthesia" Smoking Status: Former smoker - Past Family History Mother Family Medical History: No Reported History Medications and Allergies Home Medications Medication Instructions Recorded Confirmed Type Aspirin [Adult Low Dose Aspirin EC] 81 mg PO DAILY 06/24/19 04/09/21 History Ezetimibe [Zetia] 10 mg PO HS 06/24/19 04/09/21 History Lansoprazole [Prevacid] 30 mg PO BID 06/24/19 04/09/21 History atenoloL [Tenormin] 50 mg PO DAILY 06/24/19 04/09/21 History metFORMIN HCL [Glucophage] 500 mg PO BID 06/24/19 04/09/21 History Calcium/Magnesium/Zinc 1 tab PO BID 03/13/21 04/09/21 History [Skcmpfo-Auztooulx-Tsua Tablet] Clotrimazole/Betamethasone Dip 1 applic TOPICAL BID PRN 03/13/21 04/09/21 History [Lotrisone Cream] Hydrochlorothiazide 12.5 mg PO DAILY 03/13/21 04/09/21 History [hydroCHLOROthiazide] Losartan [Cozaar] 50 mg PO BID 03/13/21 04/09/21 History Natural Tears 1 drop BOTH EYES DAILY PRN 03/13/21 04/09/21 History Pioglitazone [Actos] 30 mg PO DAILY 03/13/21 04/09/21 History Biotin 1,000 mcg PO DAILY 04/09/21 04/09/21 History Cetirizine HCl [Zyrtec] 10 mg PO DAILY 04/09/21 04/09/21 History Docusate [Colace] 100 mg PO BID 04/09/21 04/09/21 History L.acidoph,Paracasei, B.lactis 1 each PO DAILY 04/09/21 04/09/21 History [Probiotic] Sulfamethox-Tmp 800-160Mg [Bactrim 1 tab PO Q12HR 04/09/21 04/09/21 History DS 800-160 mg] Vit C/E/Zn/Coppr/Lutein/Zeaxan 1 each PO BID 04/09/21 04/09/21 History [Preservision Areds 2 Softgel] Allergies Allergy/AdvReac Type Severity Reaction Status Date / Time tetracycline Allergy Rash/Hives Verified 04/09/21 15:33 amoxicillin [From Augmentin] AdvReac Nausea & Verified 04/09/21 15:33 Vomiting clavulanic acid AdvReac Nausea & Verified 04/09/21 15:33 [From Augmentin] Vomiting Qnlexbt-Png-Xrs Reductase AdvReac joint Verified 04/09/21 15:33 Inhibitor pain/muscle pain/mouth swelling "diabetic medications" Allergy " felt Uncoded 04/09/21 15:35 awful" Surgical - Exam - General well developed, well nourished - Eyes PERRL - ENT no hearing loss - Neck trachea midline - Respiratory normal expansion, normal respiratory effort - Cardiovascular Rhythm: regular - Abdomen Abdomen: soft, non tender - Neurologic normal coordination, normal sensation - Musculoskeletal normal gait, normal posture - Psychiatric oriented to time, oriented to person, oriented to place, speech is normal, memory intact Results - Imaging CT scan - abdomen: report reviewed, image reviewed CT scan - pelvis: report reviewed, image reviewed Assessment and Plan Assessment: impression: Infected right renal stone, DM, htn Plan: pcnl right
[~2021-04-13 10:09] MED LIST: AMPICILLIN 1,000 MG in SODIUM CHLORIDE 0.9% 50 ML IVPB PRN; DEXAMETHASONE SOD PHOSPHATE 4 MG/ML 1 ML VIAL IV ONE; GENTAMICIN 80 MG in SODIUM CHLORIDE 0.9% 100 ML IVPB PRN; LIDOCAINE 1% (10MG/ML) FOR IV START INTRADERMA PRN; ONDANSETRON 4 MG/2 ML VIAL IVP ONE
[2021-04-13] MEDS ORDERED: ONDANSETRON 4 MG/2 ML VIAL ONE (10:44)
--- NOTE | 2021-04-13 10:52 | XR ---
EXAMINATION TYPE: XR KUB DATE OF EXAM: 04/13/2021 Comparison: 02/01/2021 Clinical History: 76-year-old female preoperative assessment right-sided kidney stone pre-op Findings: L4-L5 posterior fusion. Moderate stool burden throughout. 1.6 cm calculus right mid abdomen is redemo nstrated. Lung bases clear. Nonobstructive bowel gas pattern. Impression: Stable 1.6 cm right renal calculus. Moderate stool burden.
[2021-04-13] MEDS: LACTATED RINGERS 1,000 ML IV SCH ×3 (11:09→14:20)
[2021-04-13 11:13] LABS: Glucose,Whole Blood 127 mg/dL (75-99)
[2021-04-13] MEDS ORDERED: fentaNYL (PF) 50 MCG/ML 2 ML AMP ONE (11:22)
[2021-04-13] MEDS ORDERED: MIDAZOLAM 2 MG/2 ML VIAL ONE (11:22)
[2021-04-13] MEDS ORDERED: GLYCOPYRROLATE 0.2 MG/ML 2 ML VIAL ONE (11:22)
[2021-04-13] MEDS ORDERED: NEOSTIGMINE 1 MG/ML 10 ML VIAL ONE (11:22)
[2021-04-13] MEDS ORDERED: PROPOFOL 10 MG/ML 20 ML VIAL IV ONE (11:22)
[2021-04-13] MEDS ORDERED: PHENYLEPHRINE-0.9% NACL SYG 1,000 MCG/10 ML SYRINGE ONE (11:22)
[2021-04-13] MEDS ORDERED: LIDOCAINE 1% INJ 10MG/ML (20 ML MDV) ONE (11:22)
[2021-04-13] MEDS ORDERED: SUCCINYLCHOLINE CHLORIDE 100 MG/5 ML SYR IV ONE (11:22)
[2021-04-13] MEDS ORDERED: ROCURONIUM 10 MG/ML (5 ML VIAL) IV ONE (11:22)
[2021-04-13] MEDS ORDERED: IOHEXOL 350 MG/ML 50 ML in EMPTY BAG 1 BAG IRRIGATION ONE (12:13)
[2021-04-13] MEDS ORDERED: MAG HYDROX/AL HYDROX/SIMETH 30 ML CUP PO PRN (12:49)
[2021-04-13] MEDS ORDERED: ACETAMINOPHEN TAB 325 MG TAB PO PRN (12:49)
[2021-04-13] MEDS ORDERED: HYDROmorphone PCA 10 MG/50 ML BAG IV PRN (12:51)
[2021-04-13] MEDS ORDERED: NALOXONE 0.4 MG/ML 1 ML VIAL IV PRN (12:51)
--- NOTE | 2021-04-13 12:56 | P.OP ---
Date of Procedure: 04/13/21 Preoperative Diagnosis: Infected kidney stone right Postoperative Diagnosis: Same Procedure(s) Performed: Cystoscopy, placement of occluding balloon catheter right, percutaneous nephrostomy (Dr. lomas), percutaneous nephrostolithotomy with ultrasound, pl acement of 10 J nephrostomy Anesthesia: BAHMAN Surgeon: Norman Parks Estimated Blood Loss (ml): 25 Pathology: other (Stone) Condition: stable Disposition: PACU Indications for Procedure: The patient is 76. She has had recurrent Proteus mirabilis urine infections. She has a 16 mm right renal pelvic stone. She comes for percutaneous nephrostolithotomy to remove the infected stone and hopefully liberate her of these infections. Description of Procedure: Patient is brought to the operating suite. She is given a general endotracheal anesthesia on the transport gurney. She's placed in a frog position with a sterile prep and drape. Cystoscopy Foroblique lens and 21-[place]ine[place] sheath identifies a normal urethra. The right ureteral orifice is identified and intubated with a 5-[place] balloon catheter passed into the renal pelvis. The cystoscope was removed it is secured to a 16-[place] Rodriguez The patient placed in a prone position with care to airways and extremities. Dr. Lomas of radiology performed percutaneous access to the right posterior lower pole calyx. I then dilated the tract to 30-[place]ine[place]. Introduced the rigid sheath and removed the clot. The stone was seen. It is too big to remove the whole. With the ultrasound was broken and 2 smaller pieces and the largest pieces removed. The rest is suctioned out. I then looked throughout the collecting system and see no remaining fragments. The stone was a typical struvite stone. Then of the procedure there is no active bleeding. There is no remaining stone. A 10-[place]ine[place] J nephrostomy tube was placed over the working wir e. It is placed in the renal pelvis. It is secured to the skin with 2-0 silk after the working sheath is removed. The patient is awake and returned recovery in good condition. Blood loss is approximately 25 mL. The patient we placed and hospital postoperatively. Condition is good.
--- NOTE | 2021-04-13 13:00 | FL ---
EXAMINATION TYPE: FL Perc Nephrostomy New Access DATE OF EXAM: 04/13/2021 COMPARISON: NONE HISTORY: Right renal calculus Procedure had been discussed with the patient by Dr. Parks, risks, benefits, alternatives, were dis cussed and any questions were answered. Informed consent was obtained. The patient was in a semipro ne position prepped and draped on the OR table in the usual sterile fashion. Utilizing a 15 cm lengt h Chiba needle a single pass was made into a lower pole posterior calyx under fluoroscopic guidance. An 0.018 guidewire is passed through the needle and there was placement of a 6-Qat[place] catheter sheat h system. There was conversion to a 0.035 system was performed with passage of a guidewire into the ureter utilizing a directional catheter. A second safety wire was placed. Remaining portion of pro cedure performed by . Approximately 8 minutes and 10 of fluoroscopy was provided. 1 images submitted. IMPRESSION: 1. Successful intraoperative right nephrostomy prior to nephrolithotomy.
[2021-04-13] MEDS ORDERED: HYDROmorphone 0.5 MG/0.5 ML SYRINGE IVP ONE (13:25)
[2021-04-13 13:37] LABS: Glucose,Whole Blood 138 mg/dL (75-99)
[2021-04-13] MEDS: ONDANSETRON 4 MG/2 ML VIAL IVP PRN (13:38)
[2021-04-13] MEDS: SODIUM CHLORIDE 0.45% 1,000 ML IV SCH ×2 (13:39→13:53)
[2021-04-13] MEDS ORDERED: diphenhydrAMINE 50 MG/ML 1 ML VIAL ONE (13:46)
[2021-04-13] MEDS ORDERED: diphenhydrAMINE 50 MG/ML 1 ML VIAL IVP ONE (13:49)
[2021-04-13] MEDS: PANTOPRAZOLE 40 MG TABLET PO SCH (18:06)
[2021-04-13] MEDS: METOCLOPRAMIDE 5 MG/ML 2 ML VIAL IVP PRN (18:08)
[2021-04-13 20:44] LABS: Glucose,Whole Blood 114 mg/dL (75-99)
[2021-04-13] MEDS ORDERED: EZETIMIBE 10 MG TAB PO SCH (21:00)
[2021-04-13 21:38] LABS: Anisocytosis Slight; Basophils % (A) 0 %; Eosinophils # (A) 0.1 k/uL (0-0.7); Eosinophils % (A) 1 %; HCT 31.7 % (34.0-46.0); HGB 10.4 gm/dL (11.4-16.0); Lymphocytes # (A) 0.8 k/uL (1.0-4.8); Lymphocytes % (A) 8 %; MCH 31.1 pg (25.0-35.0); MCHC 32.7 g/dL (31.0-37.0); MCV 95.1 fL (80.0-100.0); Mean Platelet Volume 6.8; Monocytes # (A) 0.4 k/uL (0-1.0); Monocytes % (A) 4 %; Neutrophils # (A) 9.5 k/uL (1.3-7.7); Neutrophils % (A) 86 %; Platelet Count 266 k/uL (150-450); RBC 3.34 m/uL (3.80-5.40); RDW 16.7 % (11.5-15.5)
[2021-04-13] MEDS: DOCUSATE 100 MG CAP PO SCH (21:38)
[2021-04-13] MEDS: SULFAMETHOX-TMP 800-160MG 1 EACH TAB PO SCH (21:39)
[2021-04-13] MEDS: LOSARTAN 50 MG TAB PO SCH (21:39)
[2021-04-13] MEDS: metFORMIN 500 MG TAB PO SCH (21:39)
[2021-04-13 21:52] LABS: African American GFR (CKD) 84 (>60 ml/min/1.73 sqM); Anion Gap 6 mmol/L; Blood Urea Nitrogen 17 mg/dL (7-17); Calcium 8.8 mg/dL (8.4-10.2); Carbon Dioxide 24 mmol/L (22-30); Chloride 104 mmol/L (98-107); Glucose 126 mg/dL (74-99); Non-African American GFR(CKD) 73 (>60 ml/min/1.73 sqM); Potassium 4.4 mmol/L (3.5-5.1); Sodium 134 mmol/L (137-145)
[2021-04-14] MEDS: SODIUM CHLORIDE 0.45% 1,000 ML IV SCH ×2 (00:10→09:21)
[2021-04-14 07:05] LABS: Glucose,Whole Blood 120 mg/dL (75-99)
[2021-04-14 07:06] LABS: African American GFR (CKD) 87 (>60 ml/min/1.73 sqM); Anion Gap 5 mmol/L; Blood Urea Nitrogen 13 mg/dL (7-17); Calcium 8.7 mg/dL (8.4-10.2); Carbon Dioxide 24 mmol/L (22-30); Chloride 105 mmol/L (98-107); Glucose 113 mg/dL (74-99); Non-African American GFR(CKD) 75 (>60 ml/min/1.73 sqM); Potassium 4.9 mmol/L (3.5-5.1); Sodium 134 mmol/L (137-145)
[2021-04-14] MEDS: metFORMIN 500 MG TAB PO SCH (07:30)
[2021-04-14] MEDS: PANTOPRAZOLE 40 MG TABLET PO SCH (07:30)
[2021-04-14] MEDS: DOCUSATE 100 MG CAP PO SCH (07:30)
[2021-04-14] MEDS: SULFAMETHOX-TMP 800-160MG 1 EACH TAB PO SCH (07:31)
[2021-04-14] MEDS: LOSARTAN 50 MG TAB PO SCH (07:31)
[2021-04-14] MEDS ORDERED: LORATADINE 10 MG TAB PO SCH (09:00)
[2021-04-14] MEDS ORDERED: polyethylene glycoL 3350 17 GM POWD.PACK PO SCH (09:00)
[2021-04-14] MEDS ORDERED: LACTOBACILLUS ACIDOPH & BULGAR 1 EACH PACKET PO SCH (09:00)
[2021-04-14] MEDS ORDERED: hydroCHLOROthiazide 12.5 MG CAP PO SCH (09:00)
[2021-04-14] MEDS ORDERED: PIOGLITAZONE 30 MG TAB PO SCH (09:00)
[2021-04-14] MEDS ORDERED: atenoloL 50 MG TAB PO SCH (09:00)
[2021-04-14] MEDS: METOCLOPRAMIDE 5 MG/ML 2 ML VIAL IVP PRN (09:27)
[2021-04-14] MEDS ORDERED: KETOROLAC 15 MG/ML 1 ML VIAL IVP PRN (11:10)
--- NOTE | 2021-04-14 11:14 | P.PN ---
Subjective Progress Note Date: 04/14/21 The patient is in her first postoperative day status post right percutaneous nephrostolithotomy for an infected kidney stone. She has done well. Her vital signs are stable. She is having a moderate amount of pain yet. He narcotics seem to make her nauseated. If her ostomy tube urine is also clearing. I will discontinue her Rodriguez and the narcotics. I'll place her on Toradol. She'll ambulate. If her pain is under control she'll be discharged home later today in follow-up in the office on Friday for nephrostomy tube removal. Condition is good. Postoperative instructions of been given. Objective - Vital Signs Vital signs: Vital Signs Temp 99.5 F 04/14/21 08:22 Pulse 78 04/14/21 07:44 Resp 16 04/14/21 07:44 BP 93/52 04/14/21 07:44 Pulse Ox 98 04/14/21 07:44 Intake & Output 04/13/21 04/14/21 04/14/21 18:59 06:59 18:59 Intake Total 1493 240 Output Total 25 900 Balance 1468 -660 Weight 69.6 kg Intake: IV 1253 Oral 240 240 Output: Drainage 400 Right Posterior Hip 400 Urine 500 Estimated Blood Loss 25 Other: Voiding Method Indwelling Catheter Ileal Conduit (Right) # Voids 0 - Labs CBC & Chem 7: 04/13/21 21:27 04/14/21 06:24 Labs: Abnormal Lab Results - Last 24 Hours (Table) 04/13/21 04/13/21 04/13/21 Range/Units 11:09 13:35 20:41 WBC (3.8-10.6) k/uL RBC (3.80-5.40) m/uL Hgb (11.4-16.0) gm/dL Hct (34.0-46.0) % RDW (11.5-15.5) % Neutrophils # (1.3-7.7) k/uL Lymphocytes # (1.0-4.8) k/uL Sodium (137-145) mmol/L Glucose (74-99) mg/dL POC Glucose (mg/dL) 127 H 138 H 114 H (75-99) mg/dL 04/13/21 04/13/21 04/14/21 Range/Units 21:27 21:27 06:24 WBC 11.0 H (3.8-10.6) k/uL RBC 3.34 L (3.80-5.40) m/uL Hgb 10.4 L (11.4-16.0) gm/dL Hct 31.7 L (34.0-46.0) % RDW 16.7 H (11.5-15.5) % Neutrophils # 9.5 H (1.3-7.7) k/uL Lymphocytes # 0.8 L (1.0-4.8) k/uL Sodium 134 L 134 L (137-145) mmol/L Glucose 126 H 113 H (74-99) mg/dL POC Glucose (mg/dL) (75-99) mg/dL 04/14/21 Range/Units 06:42 WBC (3.8-10.6) k/uL RBC (3.80-5.40) m/uL Hgb (11.4-16.0) gm/dL Hct (34.0-46.0) % RDW (11.5-15.5) % Neutrophils # (1.3-7.7) k/uL Lymphocytes # (1.0-4.8) k/uL Sodium (137-145) mmol/L Glucose (74-99) mg/dL POC Glucose (mg/dL) 120 H (75-99) mg/dL
--- NOTE | 2021-04-14 11:15 | P.DS ---
Providers Attending physician: Norman Parks [facility] Course: The patient was admitted the hospital 04/13/21 for a percutaneous nephrostolithotomy right for infected kidney stone. She's been on preoperative antibiotics. The case went uneventfully. She is at a moderate amount postoperative pain. The narcotics make her nauseated that she was switched to Toradol. If she feels well she'll be discharged home later today. She'll be discharged home on a prescription for Toradol. She has Bactrim at home for which she is taking for her chronic infection. She'll follow-up in the office Friday for nephrostomy tube removal. Condition is good. She'll resume all her home medications. Patient Condition at Discharge: Good Plan - Discharge Summary Discharge Rx Participant: No New Discharge Prescriptions: New Ketorolac [Toradol] 10 mg PO Q6HR PRN #14 tab PRN Reason: Pain Control No Action metFORMIN HCL [Glucophage] 500 mg PO BID Lansoprazole [Prevacid] 30 mg PO BID Ezetimibe [Zetia] 10 mg PO HS atenoloL [Tenormin] 50 mg PO DAILY Aspirin [Adult Low Dose Aspirin EC] 81 mg PO DAILY Natural Tears 1 drop BOTH EYES DAILY PRN PRN Reason: Dry Eye(S) Clotrimazole/Betamethasone Dip [Lotrisone Cream] 1 applic TOPICAL BID PRN PRN Reason: Rash Pioglitazone [Actos] 30 mg PO DAILY Docusate [Colace] 100 mg PO BID L.acidoph,Paracasei, B.lactis [Probiotic] 1 each PO DAILY Calcium/Magnesium/Zinc [Przuspw-Isvzibnsu-Ixzj Tablet] 1 tab PO BID Hydrochlorothiazide [hydroCHLOROthiazide] 12.5 mg PO DAILY Losartan [Cozaar] 50 mg PO BID Sulfamethox-Tmp 800-160Mg [Bactrim DS 800-160 mg] 1 tab PO Q12HR Vit C/E/Zn/Coppr/Lutein/Zeaxan [Preservision Areds 2 Softgel] 1 each PO BID Biotin 1,000 mcg PO DAILY Cetirizine HCl [Zyrtec] 10 mg PO DAILY Discharge Medication List Aspirin [Adult Low Dose Aspirin EC] 81 mg PO DAILY 06/24/19 [History] Ezetimibe [Zetia] 10 mg PO HS 06/24/19 [History] Lansoprazole [Prevacid] 30 mg PO BID 06/24/19 [History] atenoloL [Tenormin] 50 mg PO DAILY 06/24/19 [History] metFORMIN HCL [Glucophage] 500 mg PO BID 06/24/19 [History] Calcium/Magnesium/Zinc [Jtdlbbe-Qixhvkjrh-Uhvw Tablet] 1 tab PO BID 03/13/21 [History] Clotrimazole/Betamethasone Dip [Lotrisone Cream] 1 applic TOPICAL BID PRN 03/13/21 [History] Hydrochlorothiazide [hydroCHLOROthiazide] 12.5 mg PO DAILY 03/13/21 [History] Losartan [Cozaar] 50 mg PO BID 03/13/21 [History] Natural Tears 1 drop BOTH EYES DAILY PRN 03/13/21 [History] Pioglitazone [Actos] 30 mg PO DAILY 03/13/21 [History] Biotin 1,000 mcg PO DAILY 04/09/21 [History] Cetirizine HCl [Zyrtec] 10 mg PO DAILY 04/09/21 [History] Docusate [Colace] 100 mg PO BID 04/09/21 [History] L.acidoph,Paracasei, B.lactis [Probiotic] 1 each PO DAILY 04/09/21 [History] Sulfamethox-Tmp 800-160Mg [Bactrim DS 800-160 mg] 1 tab PO Q12HR 04/09/21 [History] Vit C/E/Zn/Coppr/Lutein/Zeaxan [Preservision Areds 2 Softgel] 1 each PO BID 04/09/21 [History] Ketorolac [Toradol] 10 mg PO Q6HR PRN #14 tab 04/14/21 [Rx] Follow up Appointment(s)/Referral(s): Norman Parks MD [STAFF PHYSICIAN] - 04/16/21
[2021-04-14 11:30] LABS: Glucose,Whole Blood 131 mg/dL (75-99)
[2021-04-14] MEDS: ONDANSETRON 4 MG/2 ML VIAL IVP PRN (11:56)
[2021-04-14 14:30] VITALS: BP 97/63; PULSE 68; RESP 18; TEMP 97.6
== END 2021-04-14 15:30 | disposition home or self-care (01) ==
LOC: OR 10:09 → 4SSUR 13:25 → OR 04-14 15:30
PROVIDERS: ATTEND Urology
DX: N20.0 Calculus of kidney (principal); B96.4 Proteus (mirabilis) (morganii) as the cause of diseases classified elsewhere; E11.9 Type 2 diabetes mellitus without complications; K21.9 Gastro-esophageal reflux disease without esophagitis; E78.5 Hyperlipidemia, unspecified; I10 Essential (primary) hypertension; G43.909 Migraine, unspecified, not intractable, without status migrainosus; H35.30 Unspecified macular degeneration; Z87.891 Personal history of nicotine dependence; Z79.899 Other long term (current) drug therapy; Z79.82 Long term (current) use of aspirin; Z88.1 Allergy status to other antibiotic agents; Z88.0 Allergy status to penicillin; Z88.8 Allergy status to other drugs, medicaments and biological substances; Z79.84 Long term (current) use of oral hypoglycemic drugs
CPT/HCPCS: 86900; 86901; 80048 ×2; 84132; 85025; 86850; 82365; 50432; 74018; 52000; C1769 ×3; C2628; C1894; C1729; J2250; J1200; J2710; J2765 ×2; J2405 ×2; J2001; J3010; J1580; J0290; J2370; J0330; J2704; Q9967; J1170 ×2

== ENCOUNTER → 2022-02-20 | Day surgery (SDC) | payer MEDICARE ==
[2022-02-14 13:24] VITALS: BMI 31.1
--- NOTE | 2022-02-19 14:19 | HP ---
HISTORY AND PHYSICAL REASON FOR ADMISSION: Surgery scheduled for 02/20/2022 HISTORY OF PRESENT ILLNESS: Larissa Verma is a 76-year-old patient seen with progressive right shoulder pain. We discussed options for treatment. She elected to proceed with right shoulder arthroscopy. Consent obtained. Medical clearance was provided. PAST MEDICAL HISTORY: Hypertension, eps-idfskee-hpxuspllb diabetes. PAST SURGICAL HISTORY: Spine surgery, bilateral total knee arthroplasty. DAILY MEDICATIONS: Hydrochlorothiazide, losartan, metformin, Motrin, Zyrtec, Tylenol. ALLERGIES: None known. SOCIAL HISTORY: She denies tobacco use. PHYSICAL EVALUATION OF THE RIGHT SHOULDER: Flexion is 150 degrees, abduction 140 degrees, external rotation is 40 degrees with pain and weakness. Tenderness along the anterolateral acromion rotator cuff insertion site. Impingement sign is positive at 90 degrees. Drop-arm sign is positive. Cross- body adduction sign is positive. Distal neurovascular exam is intact. RADIOGRAPHS: Right shoulder radiographs revealed a type 2 acromion with acromioclavicular joint osteoarthritis and cystic changes of the tuberosity. Right shoulder MRI revealed a rotator cuff tendon tear along with acromioclavicular joint osteoarthritis. IMPRESSION: 1. Right shoulder impingement with rotator cuff tear. 2. Right shoulder acromioclavicular joint osteoarthritis. 3. Hypertension. 4. Ymp-sgbnttu-fobagrszj diabetes. PLAN: Right shoulder arthroscopy with subacromial decompression, arthroscopic rotator cuff repair, Gabino procedure and debridement. Surgery is 02/20/2022. MMODL / IJN: [id number] /
[~2022-02-20] MED LIST changes: +ACETAMINOPHEN TAB 325 MG TAB ONE; +ACETAMINOPHEN TAB 325 MG TAB PO ONE; -AMPICILLIN 1,000 MG in SODIUM CHLORIDE 0.9% 50 ML IVPB PRN; -GENTAMICIN 80 MG in SODIUM CHLORIDE 0.9% 100 ML IVPB PRN; +HYDROmorphone 0.5 MG/0.5 ML SYRINGE IVP PRN; +LACTATED RINGERS 1,000 ML IV ONE; +LACTATED RINGERS 1,000 ML IV SCH; -LIDOCAINE 1% (10MG/ML) FOR IV START INTRADERMA PRN; +LIDOCAINE 2% INJ 20 MG/ML (2 ML VIAL) ONE; +MIDAZOLAM 2 MG/2 ML VIAL IV PRN; +MIDAZOLAM 2 MG/2 ML VIAL IVP ONE; +PHENYLEPHRINE-0.9% NACL SYG 1,000 MCG/10 ML SYRINGE ONE; +PROPOFOL 10 MG/ML 20 ML VIAL IV ONE; +ROPIVACAINE 5 MG/ML 30 ML VIAL ONE; +SUCCINYLCHOLINE CHLORIDE 100 MG/5 ML SYR IV ONE; +fentaNYL (PF) 50 MCG/ML 2 ML AMP IVP ONE; +fentaNYL (PF) 50 MCG/ML 2 ML AMP ONE
[2022-02-20 09:18] VITALS: RESP 16
[2022-02-20 09:40] LABS: Glucose,Whole Blood 156 mg/dL (70-110)
--- NOTE | 2022-02-20 11:53 | P.OP ---
Date of Procedure: 02/20/22 Preoperative Diagnosis: Right shoulder impingement Postoperative Diagnosis: 1. Right shoulder rotator cuff tear 2. Right shoulder impingement 3. Right shoulder partial long head biceps tendon tear Procedure(s) Performed: 1. Right shoulder arthroscopic rotator cuff repair 2. Right shoulder arthroscopic subacromial decompression 3. Right shoulder arthroscopic biceps tenotomy Implants: 34.75 Arthrex swivel lock anchors 15.5 Arthrex swivel lock anchor Anesthesia: GETA, regional (Interscalene block) Surgeon: Lisandro Felder Line Puller #1: Gelacio Parker Estimated Blood Loss (ml): 7 Pathology: none sent Condition: stable Disposition: PACU Indications for Procedure: 76-year-old patient seen with progressive right shoulder pain. After treatment options were discussed, she elected to proceed with arthroscopy. Operative Findings: see description of procedure Description of Procedure: Patient underwent an interscalene block by department of anesthesia. The patient was then taken to the operative suite. The patient underwent a general anesthetic by the department of anesthesia. The patient was placed into a lateral position and secured. There was appropriate padding of the bony prominence. Right shoulder was then prepped and draped in normal sterile orthopedic fashion. We placed the extremity in 10 pounds of longitudinal traction. A posterior incision was now made for a posterior working portal site. The trocar and cannula were inserted into the glenohumeral joint. Arthroscopy was initiated. Spinal needle was now inserted anteriorly, to ascertain the anterior working portal site. An incision was now made in that area, a trocar was inserted followed by a probe. There was significant partial tearing long head biceps tendon. The labrum appeared stable. There were mild grade 1 chondromalacia changes. I performed an arthroscopic biceps tenotomy. The anchor was probed and was found to be stable. Instruments were now removed from the glenohumeral joint. Utilizing the posterior working portal site, the trocar and cannula were inserted into the subacromial space. Arthroscopy initiated. I made an incision 2 fingerbreadths lateral to the acromion. I introduced my trocar followed by my ArthroCare ablator. I now began ablating thick subacromial bursal tissue, which exposed the undersurface of the anterior acromion. There was diminished subacromial space. There was a very prominent anterior acromion. A motorized bur was introduced and a subacromial decompression was performed. I also excised some osteophytes off the inferior aspect of the distal clavicle. The AC joint was visualized and noted to be moderately arthritic. I did not think enough toward a Gabino procedure. I turned my attention to the rotator cuff. There was a 2.53 cm rotator cuff tear. I debrided the margins getting down to stable tendon tissue. I introduced my motorized bur and abraded the footprint area, getting some petechial bleeding. I now made an accessory portal site off the lateral aspect of the acromion. I punched 2 holes medial for medial row fixation with the assistance of Bart WONG carefully tapping the punch with a mallet as I held the punch and the camera. I now introduced both anchors into the pre- punched holes and Bart WONG tapped them with the mallet as I held anchors and the camera. Bart WONG now screwed the anchors in place a while I held the anchor guide and camera. All 8 limbs of suture were now passed through good bites of rotator cuff tendon. I now punched 2 holes for lateral row fixation again I held the punch and camera while Bart WONG used a mallet to tap in the punch. We now passed sutures through both anchors and individually I introduced the anchors into the pre-punch holes I held the anchor guide in position with one hand holding the camera with the other hand while Bart WONG tensioned the sutures and screwed in the anchors one at a time. All residual suture limbs were now clipped. We had good compression of the tendon along the entire footprint. Instruments now removed from the portal sites. All portal sites were approximated with nylon suture. Sterile dressings were applied followed by a shoulder immobilizer. Gelacio WONG assisted in this complex case. The patient was awakened, transferred to a bed, and taken to recovery in stable condition.
[2022-02-20 11:57] VITALS: TEMP 96.8
[2022-02-20 12:03] LABS: Glucose,Whole Blood 146 mg/dL (70-110)
[2022-02-20 14:00] VITALS: BP 124/81; PULSE 67
--- NOTE | 2022-02-20 17:14 | P.ANPRN ---
Procedure Note - Anesthesia - Nerve Block Performed Right Interscalene Time Out Performed: Yes (:58) Date of Procedure: 02/20/22 Procedure Start Time: Procedure Stop Time: :07 Location of Patient: PreOp Indication: Acute Post-Operative Pain, Requested by Surgeon (Dr Felder) Sedation Type: Sedate with meaningful contact maintained Preparation: Sterile Prep Position: Supine Catheter: None Needle Types: Pajunk Needle Gauge: Other (see comment) (22g) Ultrasound used to visualize needle placement: Yes Ultrasound used to observe medication spread: Yes Injectate: 0.5% Ropivacaine (see comment for volume) (18cc) Blood Aspirated: No Pain Paresthesia on Injection Noted: No Resistance on Injection: Normal Image Stored and Saved: Yes Events: Uneventful and Well Tolerated
== END | disposition home or self-care (01) ==
LOC: OR 08:40
PROVIDERS: ATTEND Orthopaedic Surgery
DX: M75.101 Unspecified rotator cuff tear or rupture of right shoulder, not specified as traumatic (principal); M25.811 Other specified joint disorders, right shoulder; S46.111A Strain of muscle, fascia and tendon of long head of biceps, right arm, initial encounter; X58.XXXA Exposure to other specified factors, initial encounter; Z88.5 Allergy status to narcotic agent; Z88.8 Allergy status to other drugs, medicaments and biological substances; I10 Essential (primary) hypertension; E11.9 Type 2 diabetes mellitus without complications; M19.90 Unspecified osteoarthritis, unspecified site; Z96.653 Presence of artificial knee joint, bilateral; Z98.890 Other specified postprocedural states; E78.2 Mixed hyperlipidemia; K21.00 Gastro-esophageal reflux disease with esophagitis, without bleeding; J30.1 Allergic rhinitis due to pollen; Z79.84 Long term (current) use of oral hypoglycemic drugs; Z79.1 Long term (current) use of non-steroidal anti-inflammatories (NSAID); Z79.899 Other long term (current) drug therapy
CPT/HCPCS: 29826; 29827; 64415; 76942; C1713 ×2; C1894; J2250; J1100; J2405; J0690; J3010; J2795; J2370; J0330; J2704; J1790; J2001

== ENCOUNTER → 2022-03-06 | Outpatient (CLI) | payer MEDICARE ==
--- NOTE | 2022-03-06 13:29 | US ---
EXAMINATION TYPE: US venous doppler duplex LE LT DATE OF EXAM: 03/06/2022 12:51 PM COMPARISON: NONE CLINICAL HISTORY: M79.605 LEFT LEG PAIN. SIDE PERFORMED: Left TECHNIQUE: The lower extremity deep venous system is examined utilizing real time linear array sonog kaushik with graded compression, doppler sonography and color-flow sonography. VESSELS IMAGED: Common Femoral Vein Deep Femoral Vein Greater Saphenous Vein * Femoral Vein Popliteal Vein Small Saphenous Vein * Proximal Calf Veins (* superficial vessels) Left Leg: Negative for DVT Grayscale, color doppler, spectral doppler imaging performed of the deep veins of the lower extremiti es. There is normal flow, compressibility, vascular waveforms. Streaky subcutaneous edema identified. IMPRESSION: 1. No evidence for deep vein thrombosis of the left lower extremity. 2. Mild scattered subcutaneous edema.
== END | disposition home or self-care (01) ==
LOC: RADUSWWP 12:15
PROVIDERS: ATTEND Internal Medicine
DX: M79.605 Pain in left leg (principal)

== ENCOUNTER → 2022-05-14 | Outpatient (CLI) | payer MEDICARE ==
--- NOTE | 2022-05-14 13:35 | NM ---
EXAMINATION TYPE: NM gastric emptying static DATE OF EXAM: 05/14/2022 COMPARISON: NONE HISTORY: 77-year-old female K31.84, gastroparesis. Technique: Following administration of 1.7 mCi Tc 99m Sulfur Colloid with 4 ounces egg beaters, 1piec e of toast with butter & jelly and 4 ounces of water. Anterior and posterior geometric mean images of the abdomen were obtained 10 minutes post ingestion. FINDINGS: Patient Emptying Values 1 Hour 35 % (70-10%) 2 Hours 65 % (> 40%) 3 Hours 88 % (> 70%) 4 Hours 99 % (> 90%) Gastroesophagel reflux: None IMPRESSION: Imaging up to 4 hours. No scintigraphic evidence for gastroparesis.
== END | disposition home or self-care (01) ==
LOC: RADNMMAIN 07:02
PROVIDERS: ATTEND Internal Medicine
DX: K31.84 Gastroparesis (principal)
CPT/HCPCS: 78264; A9541

== ENCOUNTER → 2022-11-15 | Outpatient (CLI) | payer MEDICARE ==
--- NOTE | 2022-11-15 13:19 | US ---
EXAMINATION TYPE: US carotid duplex BILAT DATE OF EXAM: 11/15/2022 COMPARISON: NONE CLINICAL HISTORY: I65.23 CAROTID STENOSIS. Stenosis TECHNIQUE: Carotid duplex ultrasound examination. Indirect Doppler criteria was utilized. FINDINGS: EXAM MEASUREMENTS: RIGHT: Peak Systolic Velocity (PSV) cm/sec ----- Right CCA: 74.7 ----- Right ICA: 87.0 ----- Right ECA: 149 ICA/CCA ratio: 1.2 RIGHT: End Diastole cm/sec ----- Right CCA: 19.7 ----- Right ICA: 31.8 ----- Right ECA: 15.4 LEFT: Peak Systolic Velocity (PSV) cm/sec ----- Left CCA: 84.9 ----- Left ICA: 126 ----- Left ECA: 105 ICA/CCA ratio: 1.5 LEFT: End Diastole cm/sec ----- Left CCA: 23.1 ----- Left ICA: 39.1 ----- Left ECA: 11.5 VERTEBRALS (direction of flow): Right Vertebral: Antegrade Left Vertebral: Antegrade Rhythm: Normal ETIOLOGIST NOTES: Slightly elevated velocities right ECA, otherwise no significant stenosis visualiz ed IMPRESSION: No evidence for hemodynamically significant stenosis Criteria for Assigning % of Stenosis / Diameter reduction (Estimation based on the indirect measurements of the internal carotid artery velocities (ICA PSV). 1. Normal (no stenosis)=ICA PSV < 125 cm/s: ratio < 2.0: ICA EDV<40 cm/s. 2. Less than 50% stenosis=ICA PSV < 125 cm/s: ratio < 2.0: ICA EDV<40 cm/s. 3. 50 to 69% stenosis=ICA PSV of 125 to 230 cm/s: ration 2.0 ? 4.0: ICA EDV 40-100 cm/s. 4. Greater than 70% stenosis to near occlusion= ICA PSV > 230 cm/s: ratio > 4.0: ICA EDV > 100 cm/s. 5. Near occlusion= ICA PSV velocities may be low or undetectable: variable ratio and ICA EDV. 6. Total occlusion=unable to detect flow.
--- NOTE | 2022-11-15 17:35 | CA ---
Transthoracic Echo Report Name: Larissa Verma Age: 77 Gender: F : 1945 Exam Date: 11/15/2022 13:57 Exam Location: [place] [facility] Ht (in): 61 Wt (lb): 166 Ordering Physician: Kole Juarez MD Attending/Referring Phys: Kole Juarez MD [employer] Specialist Mitzi Jordan RDCS Procedure CPT: Indications: I34.0 Cardiac Hx: Technical Quality: Fair Contrast 1: Total Dose (mL): Contrast 2: Total Dose (mL): MEASUREMENTS (Male / Female) Normal Values 2D ECHO LV Diastolic Diameter PLAX 3.0 cm 4.2 - 5.9 / 3.9 - 5.3 cm LV Systolic Diameter PLAX 2.1 cm IVS Diastolic Thickness 1.5 cm 0.6 - 1.0 / 0.6 - 0.9 cm LVPW Diastolic Thickness 1.1 cm 0.6 - 1.0 / 0.6 - 0.9 cm LV Relative Wall Thickness 0.8 RV Internal Dim ED PLAX 2.5 cm LA Volume 29.3 cm??? 18 - 58 / 22 - 52 cm??? M-MODE Aortic Root Diameter MM 2.7 cm LA Systolic Diameter MM 3.8 cm LA Ao Ratio MM 1.4 AV Cusp Separation MM 1.8 cm DOPPLER AV Peak Velocity 136.4 cm/s AV Peak Gradient 7.4 mmHg AV Mean Velocity 95.6 cm/s AV Mean Gradient 4.0 mmHg AV Velocity Time Integral 26.2 cm AI Peak Velocity 410.3 cm/s AI Peak Gradient 67.3 mmHg AI Pressure Half Time 500.1 ms LVOT Peak Velocity 128.2 cm/s LVOT Peak Gradient 6.6 mmHg LVOT Velocity Time Integral 25.3 cm MV Area PHT 2.5 cm??? Mitral E Point Velocity 61.2 cm/s Mitral A Point Velocity 108.6 cm/s Mitral E to A Ratio 0.6 MV Deceleration Time 298.2 ms MV E' Velocity 4.5 cm/s Mitral E to MV E' Ratio 13.7 TR Peak Velocity 290.2 cm/s TR Peak Gradient 33.7 mmHg Right Ventricular Systolic Press 36.1 mmHg FINDINGS Left Ventricle Moderately increased left ventricular wall thickness. Left ventricular cavity size normal. Normal left ventricular systolic function with no obvious regional wall motion abnormalities. Left ventricular ejection fraction is estimated at 55-60 %. Right Ventricle Normal right ventricular size and function. Right ventricular systolic pressure within normal limits. Right Atrium Normal right atrial size. Left Atrium Normal left atrial size. Mitral Valve Structurally normal mitral valve. Mild mitral annular calcification. Mild mitral regurgitation. Aortic Valve No aortic stenosis. Aortic valve sclerosis. Mild aortic regurgitation. Tricuspid Valve Structurally normal tricuspid valve. Mild tricuspid regurgitation. Pulmonic Valve Structurally normal pulmonic valve. Pericardium No pericardial effusion. Aorta Normal size aortic root and proximal ascending aorta. Ascending aorta measuring at 3.6 cm CONCLUSIONS Moderate increased left ventricular wall thickness Left ventricular ejection fraction 55-60% Mild mitral regurgitation Mild aortic regurgitation Mild tricuspid regurgitation Ascending aorta measuring 3.6 cm No pericardial effusion Previewed by: Dr. Florian Hodgson DO (Electronically Signed) Final Date: 15 November 2022 17:34
== END | disposition home or self-care (01) ==
LOC: RADUSWWP 12:41
PROVIDERS: ATTEND Internal Medicine
DX: Z12.31 Encounter for screening mammogram for malignant neoplasm of breast (principal); I65.23 Occlusion and stenosis of bilateral carotid arteries; I34.0 Nonrheumatic mitral (valve) insufficiency
CPT/HCPCS: 77063; 77067; 93306; 93880

== ENCOUNTER 2023-01-07 09:28 | Day surgery (SDC) | payer MEDICARE ==
[2023-01-03 14:54] VITALS: BMI 30.2
[~2023-01-07 09:28] MED LIST changes: -ACETAMINOPHEN TAB 325 MG TAB ONE; -ACETAMINOPHEN TAB 325 MG TAB PO ONE; -DEXAMETHASONE SOD PHOSPHATE 4 MG/ML 1 ML VIAL IV ONE; -HYDROmorphone 0.5 MG/0.5 ML SYRINGE IVP PRN; -LACTATED RINGERS 1,000 ML IV ONE; +LIDOCAINE 1% (10MG/ML) FOR IV START INTRADERMA PRN; -LIDOCAINE 2% INJ 20 MG/ML (2 ML VIAL) ONE; -MIDAZOLAM 2 MG/2 ML VIAL IV PRN; -MIDAZOLAM 2 MG/2 ML VIAL IVP ONE; -ONDANSETRON 4 MG/2 ML VIAL IVP ONE; -PHENYLEPHRINE-0.9% NACL SYG 1,000 MCG/10 ML SYRINGE ONE; -PROPOFOL 10 MG/ML 20 ML VIAL IV ONE; -ROPIVACAINE 5 MG/ML 30 ML VIAL ONE; -SUCCINYLCHOLINE CHLORIDE 100 MG/5 ML SYR IV ONE; -fentaNYL (PF) 50 MCG/ML 2 ML AMP IVP ONE; -fentaNYL (PF) 50 MCG/ML 2 ML AMP ONE
[2023-01-07 10:04] VITALS: TEMP 97.7
[2023-01-07 10:10] LABS: Glucose,Whole Blood 109 mg/dL (70-110)
[2023-01-07] MEDS ORDERED: LIDOCAINE 2% INJ 20 MG/ML (2 ML VIAL) ONE (10:38)
[2023-01-07] MEDS ORDERED: PROPOFOL 10 MG/ML 20 ML VIAL IV ONE (10:38)
--- NOTE | 2023-01-07 10:54 | P.PCN ---
Date of Procedure: 01/07/23 Procedure(s) Performed: BRIEF HISTORY: Patient is a 77-year-old, pleasant, female scheduled for an upper endoscopy as a part of evaluation of epigastric discomfort, early satiety, nausea and epigastric discomfort for the last several months duration. She lost 10 pounds since onset of the symptoms. She does have long-standing history of GERD and has been on Prevacid 30 mg twice daily for several years. PROCEDURE PERFORMED: Esophagogastroduodenoscopy with biopsy . PREOPERATIVE DIAGNOSIS: Epigastric pain and early satiety/long-standing history of GERD. IV sedation per anesthesia. PROCEDURE: After informed consent was obtained, the patient was brought into the endoscopy unit. IV sedation was administered by Anesthesia under continuous monitoring. Initially the Olympus GIF-140 video endoscope was inserted into the mouth. Esophagus intubated without any difficulty. It was gradually advanced into the stomach and duodenum and carefully examined. The bulb and the second part of the duodenum appeared normal. The scope at this time was withdrawn to the stomach, adequately insufflated with air, and upon careful examination, mucosa of the antrum, had mild gastritis and biopsies were done from this area. Mucosa of thebody, cardia and the fundus appeared normal. The scope was then withdrawn into the esophagus. The GE junction was located at 39 cm from the incisors. mall hiatal hernia noted.The esophagus appeared normal. There were no erosions or ulcerations seen , biopsies were done from the distal esophagus and the patient tolerated the procedure well. IMPRESSION: 1. Small hiatal hernia. 2. Mild antral gastritis. RECOMMENDATIONS: The findings of this examination were discussed with the patient as well as a family. She was advised to continue with Prevacid 30 mg twice daily and follow antireflux measures. Recommend small frequent meals. In she continues to have persistent symptoms recommend obtaining gastric emptying scan to evaluate for gastroparesis..
[2023-01-07 10:59] VITALS: RESP 16
[2023-01-07 11:18] VITALS: BP 126/72; PULSE 82
== END 2023-01-07 11:35 | disposition home or self-care (01) ==
LOC: ORWHC2ENDO 09:28
PROVIDERS: ATTEND Internal Medicine Gastroenterology
DX: K29.50 Unspecified chronic gastritis without bleeding (principal); K21.00 Gastro-esophageal reflux disease with esophagitis, without bleeding; K44.9 Diaphragmatic hernia without obstruction or gangrene; Z88.0 Allergy status to penicillin; Z79.899 Other long term (current) drug therapy; I10 Essential (primary) hypertension; E78.5 Hyperlipidemia, unspecified; E11.9 Type 2 diabetes mellitus without complications; K21.9 Gastro-esophageal reflux disease without esophagitis
CPT/HCPCS: 88305; 43239; J2704; J2001

== ENCOUNTER → 2023-02-24 | Outpatient (CLI) | payer MEDICARE ==
--- NOTE | 2023-02-24 11:41 | NM ---
EXAMINATION TYPE: NM hepatobiliary w EF DATE OF EXAM: 02/24/2023 10:56 AM COMPARISON: None CLINICAL INDICATION:Female, 77 years old with history of R10.13 dyspepsia; TECHNIQUE: The patient was given 4.87 mCi of Technetium 99m-Mebrofenin as a radiotracer and multiple scintigraphic images were obtained of the abdomen. Gallbladder function was also assessed after the administration of ensure drink and additional scintigraphic images were obtained of the abdomen. A re gion of interest was drawn over the gallbladder and a timing activity curve was generated. The gallbl adder ejection fraction was calculated. FINDINGS: Normal uptake of radiotracer was identified within the liver with excretion into the hepatic and comm on biliary ducts within 120 seconds. There was normal progressive washout of the liver over the cours e of the study. Radiotracer uptake within the gallbladder as well as small bowel activity was identif ied. Maximum calculated gallbladder ejection fraction is: 83% at 30 minutes (Normal gallbladder ejection fraction is > 35%) IMPRESSION: 1. Normal hepatobiliary scan. 2. Normal ejection fraction.
== END | disposition home or self-care (01) ==
LOC: RADNMMAIN 06:54
PROVIDERS: ATTEND Internal Medicine
DX: R10.13 Epigastric pain (principal)
CPT/HCPCS: 78226; A9537

== ENCOUNTER → 2023-04-30 | Outpatient (CLI) | payer MEDICARE ==
--- NOTE | 2023-04-30 15:10 | USB ---
Reason for Exam: Clinical finding. Patient History: Menarche at age 12. First Full-Term at age 32. Late child-bearing (after 32). Left ovary removed at age 45. Right ovary removed at age 45. Hysterectomy at age 45. Postmenopausal. Benign Excisional Biopsy on the left side. Risk Values: Janice 5 year model risk: 3.1%. NCI Lifetime model risk: 6.4%. Technique: Method: Targeted. Prior Study Comparison: 06/25/2018 Bilateral Screening Mammogram, [facility]. 10/11/2021 Bilateral Screening Mammogram, [facility]. 11/15/2022 Bilateral MG 3D screening mammo w/cad, [facility]. Findings: The axilla of the right breast was scanned. No solid or cystic masses are identified.. Normal axillary lymphadenopathy is present. Overall Assessment: Benign, BI-RAD 2 Management: Screening Mammogram of both breasts in 2 months. A clinical breast exam by your physician is recommended on an annual basis and results should be correlated with mammographic findings. This exam should not preclude additional follow-up of suspicious palpable abnormalities. Results were given to the patient verbally at the time of exam. Electronically signed and approved by: Omid Glover D.O. Radiologis
== END | disposition home or self-care (01) ==
LOC: RADMAMWWP 14:20
PROVIDERS: ATTEND Internal Medicine
DX: N64.4 Mastodynia (principal); Z78.0 Asymptomatic menopausal state
CPT/HCPCS: 77065; 76642; G0279; 77061

== ENCOUNTER → 2023-10-10 | Outpatient (CLI) | payer MEDICARE ==
--- NOTE | 2023-10-10 12:20 | CT ---
EXAMINATION TYPE: CT tmj maxillofacial wo con DATE OF EXAM: 10/10/2023 COMPARISON: None HISTORY: pain in TMJ area. 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 DLP: 544 mGycm Automated exposure control for dose reduction was used. FINDINGS: The temporomandibular joints appear normal bilaterally. The mandibular condyles are intact and there is no deformity, erosion or sclerosis. The temporomandibular joint spaces are well-maintained in the closed mouth position. There is normal anterior translation of the mandibular condyle on the open vicenta th views. IMPRESSION: NO SIGNIFICANT ABNORMALITY SEEN.
== END | disposition home or self-care (01) ==
LOC: RADCTMAIN 11:28
PROVIDERS: ATTEND Internal Medicine
DX: M26.629 Arthralgia of temporomandibular joint, unspecified side (principal)
CPT/HCPCS: 70486

== ENCOUNTER → 2024-05-10 | Outpatient (CLI) | payer MEDICARE ==
--- NOTE | 2024-05-17 08:20 | MM ---
Reason for Exam: Screening (asymptomatic). Last mammogram was performed 1 year(s) and 6 month(s) ago. Patient History: Menarche at age 12. First Full-Term at age 32. Late child-bearing (after 32). Left ovary removed at age 45. Right ovary removed at age 45. Hysterectomy at age 45. Postmenopausal. Benign Excisional Biopsy on the left side. Risk Values: Janice 5 year model risk: 3.1%. NCI Lifetime model risk: 5.9%. Prior Study Comparison: 12/13/2015 Bilateral Screening Mammogram, [facility]. 06/25/2018 Bilateral Screening Mammogram, [facility] 10/11/2021 Bilateral Screening Mammogram, [facility]. 11/15/2022 Bilateral MG 3D screening mammo w/cad, [facility]. 04/30/2023 Right MG 3D diag mammo w/cad RT, [facility]. Tissue Density: The breasts are heterogeneously dense, which may obscure small masses. Findings: Analyzed By CAD. Right breast: There is no suspicious group of microcalcifications or new suspicious mass. Left breast: There is no suspicious group of microcalcifications or new suspicious mass. Overall Assessment: Negative, BI-RAD 1 Management: Screening Mammogram of both breasts in [address] [facility] will attempt to contact patient to return for supplemental views and ultrasound if indicated. Patient should continue monthly self-breast exams. A clinical breast exam by your physician is recommended on an annual basis. This exam should not preclude additional follow-up of suspicious palpable abnormalities. Note on Janice scores and lifetime risk: 1. A Janice score greater than 3% is considered moderate risk. If this is the case, consider specialist referral to assess eligibility for a risk reducing agent. 2. If overall lifetime risk for the development of breast cancer is 20% or higher, the patient may qualify for future screening with alternating mammogram and breast MRI. [facility], , 05/17/2024 8:18 AM. Electronically signed and approved by: Fletcher Cooley DO
== END | disposition home or self-care (01) ==
LOC: RADMAMWWP 08:55
PROVIDERS: ATTEND Internal Medicine
DX: Z12.31 Encounter for screening mammogram for malignant neoplasm of breast
CPT/HCPCS: 77063; 77067

== ENCOUNTER → 2025-01-26 | Outpatient (CLI) | payer MEDICARE ==
--- NOTE | 2025-01-26 11:06 | US ---
EXAMINATION TYPE: US carotid duplex BILAT DATE OF EXAM: 01/26/2025 COMPARISON: CLINICAL INDICATION: Female, 79 years old with history of I65.23 STENOSIS; Additional History: .... TECHNIQUE: Grayscale, color Doppler and spectral Doppler evaluation of the bilateral carotid systems and vertebral arteries. Indirect Doppler criteria was utilized. FINDINGS: EXAM MEASUREMENTS: RIGHT: Peak Systolic Velocity (PSV) cm/sec ----- Right CCA: 85.3 ----- Right ICA: 98.7 ----- Right ECA: 106.0 ICA/CCA ratio: 1.2 RIGHT: End Diastole cm/sec ----- Right CCA: 15.9 ----- Right ICA: 22.6 ----- Right ECA: 0.0 LEFT: Peak Systolic Velocity (PSV) cm/sec ----- Left CCA: 79.4 ----- Left ICA: 97.0 ----- Left ECA: 84.9 ICA/CCA ratio: 1.2 LEFT: End Diastole cm/sec ----- Left CCA: 16.1 ----- Left ICA: 25.2 ----- Left ECA: 8.0 VERTEBRALS (direction of flow): Right Vertebral: Antegrade Left Vertebral: Antegrade Rhythm: Normal SAFETY ANALYST NOTES: Plaque seen in left bulb. No elevated velocities. No wall thickening. Color Doppler imaging shows patency with blood flow throughout the carotid artery. Spectral waveforms are within normal limits. IMPRESSION: Right: No hemodynamically significant stenosis. Left: No hemodynamically significant stenosis. Criteria for Assigning % of Stenosis / Diameter reduction (Estimation based on the indirect measurements of the internal carotid artery velocities (ICA PSV). 1. Normal (no stenosis)=ICA PSV < 180 cm/s: ratio < 2.0: ICA EDV<40 cm/s. 2. Less than 50% stenosis=ICA PSV < 180 cm/s: ratio < 2.0: ICA EDV<40 cm/s. 3. 50 to 69% stenosis=ICA PSV of 180 to 230 cm/s: ration 2.0 ? 4.0: ICA EDV 40-100 cm/s. PSV 125-180 cm/sec and ICA/CCA PSV Ratio ? 2.0 is also consistent with 50-69% stenosis 4. Greater than 70% stenosis to near occlusion= ICA PSV > 230 cm/s: ratio > 4.0: ICA EDV > 100 cm/s. 5. Near occlusion= ICA PSV velocities may be low or undetectable: variable ratio and ICA EDV. 6. Total occlusion=unable to detect flow. [facility], , 01/26/2025 11:03 AM
--- NOTE | 2025-01-26 11:48 | BD ---
EXAMINATION TYPE: Axial Bone Density DATE OF EXAM: 01/26/2025 CLINICAL HISTORY: 79 years old Female. ICD-10 CODE: I34.0 REGURG M85.851 OSTEOPENIA , Additional Hi story: Height: 60 Weight: 136.7 FRAX RISK QUESTIONS: Alcohol (3 or more units per day): no Family History (Parent hip fracture): no Glucocorticoids (More than 3mos): no (Ex: prednisone, prednisolone, methylprednisolone, dexamethasone, and hydrocortisone). History of Fracture in Adulthood: no Secondary Osteoporosis: 1. Type 1 Diabetes: no 2. Hyperthyroidism: no 3. Menopause before 45: no 4. Malnutrition: no 5. Chronic liver disease: no Rheumatoid Arthritis: no Current Tobacco Use: no RISK FACTORS HISTORY OF: Hip Fracture (Right/Left): no Spine Fracture: yes When: age 57 History of Wrist Fracture: no Surgery to Spine/Hip(right/left)/Wrist (right/left): L4-L5 with hardware When: age 57 MEDICATIONS: Thyroid Medications: no Osteoporosis Medications: no EXAM MEASUREMENTS: Bone mineral densitometry was performed using the [employer]. Bone mineral density about the R hip (g/cm2): 0.783 Bone mineral density about the L hip (g/cm2): 0.784 T Score values are as follows: -----R Neck: -2.1 -----L Neck: -1.9 -----R Total: -1.8 -----L Total: -1.8 Z Score values are as follows: -----R Neck: 0.0 -----L Neck: 0.2 -----R Total: 0.2 -----L Total: 0.2 Bone mineral density has: decreased -6.8 % since study of: 12/13/2015 Bone mineral density about the L Wrist (g/cm2): 0.461 T Score values are as follows: -----Dist. R+U: -2.7 -----Prox. R+U: -2.8 -----Radius total: -3.5 Z Score values are as follows: -----Dist. R+U: -0.1 -----Prox. R+U: -0.3 -----Radius total: -1.0 Baseline Wrist Study FRAX%s: The graph provided illustrates a 22.7% chance for a major osteoporotic fx and a 6.3% chance f or the hips probability for fx in 10 years time. IMPRESSION: Osteoporosis (T Score less than -2.5). There is increased fracture risk and therapy is usually indicated based on age. Re-Screen 1-2 years. NOTE: T-SCORE=SD OF THE YOUNG ADULT MEAN. [facility], , 01/26/2025 11:45 AM
== END | disposition home or self-care (01) ==
LOC: RADUSWWP 09:58
PROVIDERS: ATTEND Internal Medicine
DX: M85.851 Other specified disorders of bone density and structure, right thigh (principal); I65.23 Occlusion and stenosis of bilateral carotid arteries; M81.0 Age-related osteoporosis without current pathological fracture
CPT/HCPCS: 77080; 93880